=== PATIENT | male | born 1955 | race Caucasian/White ===

== ENCOUNTER 2019-03-02 07:44 | Emergency (ER) | payer OTHER ==
--- OUTSIDE RECORDS SUMMARY | 2019-03-02 07:47 | XMS REPORT | Clinical Summary ---
:1955 Author Organization [facility] Address [address] [place] [address] Care Team Providers Name Role Phone Jeremias Wooten Primary Care Provider Allergies No Known Allergies Medications Medication Sig Dispensed Refills Start Date End Date Status insulin detemir Inject subcutaneously 0 Active (LEVEMIR) 100 nightly. unit/mL (3 mL) InPn injection Missing or 0 Active Non-Formulary Medication metoprolol Take 50 mg by mouth 0 Active (TOPROL-XL) 50 MG daily. 24 hr tablet lansoprazole Take 30 mg by mouth 0 Active (PREVACID) 30 MG daily. capsule glipiZIDE Take 5 mg by mouth 2 0 Active (GLUCOTROL) 5 MG (two) times daily tablet before meals. atorvastatin Take 10 mg by mouth 0 Active (LIPITOR) 10 MG daily. tablet Missing or 0 Active Non-Formulary Medication Active Problems No known active problems Social History Tobacco Use Types Packs/Day Years Used Date Never Smoker Alcohol Use Drinks/Week oz/Week Comments Yes 3 Cans of beer 1.8 PER [facility]EE[facility] Sex Assigned at Date Recorded Not on file Job Start Date Occupation Industry Not on file Not on file Not on file Travel History Travel Start Travel End No recent travel history available. Last Filed Vital Signs Not on file Plan of Treatment Not on file Results Not on fileafter 03/01/2018 Insurance Payer Benefit Plan / Group Subscriber ID Type Phone Address [employer] - [place] HMO/POS/OPEN ACCESS xxxxxxxxxxx HMO/POS
--- OUTSIDE RECORDS SUMMARY | 2019-03-02 07:51 | XMS REPORT ---
:1955 Author Organization [facility] Address [address] [place] [address] Care Team Providers Name Role Phone UNKNOWN, REFFERING Primary Care Provider Unavailable ASAD RUSSELL M.D. Unavailable Unavailable DOUG SAMPSON M.D. Unavailable Unavailable Problems This patient has no known problems. Allergies, Adverse Reactions, Alerts This patient has no known allergies or adverse reactions. Medications This patient has no known medications. Encounters Start End Encounter Admission Attending Care Care Encounter Date/Time Date/Time Type Type Clinicians Facility Department ID 2018-01-23 2018-01-23 [id number] 10:33:00 10:33:00 Trevor CAMACHO 2017-10-06 2017-10-06 [facility] [id number] 20:10:00 20:10:00 DOUG Results Test Description Test Time Test Comments Text Results Atomic Results Result Comments Culture, Blood Routine 2018-02-13 19:31:00 Specimen: BloodCollected: 2017 15:45 Status: Final Last Updated: 02/13/2018 19:31 Culture Result (Final) (Final) No Growth After 5 Days Culture, Blood Routine 2018-02-13 19:31:00 Specimen: BloodCollected: 2017 15:30 Status: Final Last Updated: 02/13/2018 19:31 Culture Result (Final) (Final) No Growth After 5 Days Culture, Cath Tip 2018-02-13 13:30:00 Specimen: Cent.line cath tipCollected : 02/08/2018 12:30 Status: Final Last Updated: 02/13/2018 13:30 Culture Result (Final) (Final) 02/09/18 No growth 24 hours 02/10/18 No growth 48 hours 02/11/18 No growth 3 days 02/12/18 No growth 4 days 02/13/18 No growth 5 days Culture, Urine 2018-02-11 08:05:00 Specimen: UrineCollected: 02/08/2018 20:20 Status: Final Last Updated: 02/11/2018 08:05 Culture Result (Final) (Final) 02/10/18 No growth 24 hours 02/11/18 No growth 48 hours XR ABDOMEN KUB 1V 2018-02-10 08:25:00 XR ABDOMEN KUB 1VLOCATION: [id number] : SBO vs IleusCOMPARISON: KUB 02/09/2018 and 02/08/2018; chest radiograph 02/09/2018FINDINGS: 2 AP portable abdominal radiographs were submitted for interpretation. Mild diffuse small bowel distention has not significantly changed whencompared to KUB dated 02/09/2018.There is no evidence for pneumoperitoneum.Surgical clips are seen over the upper abdomen.There are no acute osseous abnormalities.Median sternotomy changes are present.Left basilar opacity may be due to atelectasis or pneumonia in theappropriate clinical setting.IMPRESSION: Unchanged mild diffuse small bowel distention (when compared to KUBdated 02/09/2018). POC Glucose, Blood 2018-02-10 07:50:00 Test Item Value Reference Range Comments POC Glucose (test code=POCGLUC) 89 mg/dL 70-115 If you consider your patient critically ill, the [facility] Accu-Chek InformII metershould not be used for Glucose determinations.Draw a venous Glucose and send to the Main Lab for Analysis. CBC with [id number] 06:02:00 Test Item Value Reference Range Comments WBC (test code=WBC) 11.0 K/cumm 4.4-10.5 RBC (test code=RBC) 4.27 M/cumm 4.10-5.70 Hemoglobin (test code=HGB) 12.5 gm/dL 13.4-17.4 Hematocrit (test code=HCT) 38.7 % 38.7-52.0 MCV (test code=MCV) 90.8 fL 80-100 MCH (test code=MCH) 29.4 pg 27.0-32.5 MCHC (test code=MCHC) 32.4 g/dL 32.0-37.5 RDW (test code=RDW) 13.4 % 11.5-14.5 Platelet Count (test code=PLTCT) 726 K/cumm 140-440 MPV (test code=MPV) 8.8 fL Diff Method (test code=DIFFM) Auto Neutrophil (test code=NEUT) 63.1 % 36-70 Lymphocyte (test code=LYMPH) 27.3 % 12-44 Monocyte (test code=MONO) 7.6 % 0-11 Eosinophil (test code=EOS) 0.8 % 0-7 Basophil (test code=BASO) 1.1 % 0-2 Neutro Abs (test code=ANEUT) 6.9 K/cumm 1.6-7.4 Lymph Abs (test code=ALYMPH) 3.0 K/cumm 0.5-4.6 [place] Abs (test code=AMONO) 0.8 K/cumm 0.0-1.2 Eos Abs (test code=AEOS) 0.09 K/cumm 0.00-0.74 Baso Abs (test code=ABASO) 0.1 K/cumm 0.00-0.21 Renal [id number] 06:01:00 Test Item Value Reference Range Comments Sodium (test code=NA) 136 mmol/L 135-145 Potassium (test code=K) 3.7 mmol/L 3.5-5.1 Chloride (test code=CL) 92 mmol/L 98-105 Carbon Dioxide (test 32 mmol/L 22-29 code=CO2) Glucose (test code=GLU) 85 mg/dL 70-115 Blood Urea Nitrogen 15 mg/dL 8-23 (test code=BUN) Creatinine (test 0.8 mg/dL 0.7-1.2 code=CREAT) Calcium (test code=CA) 8.6 mg/dL 8.3-10.5 Albumin (test code=ALB) 3.2 g/dL 3.5-5.2 Phosphorus (test 4.0 mg/dL 2.70-4.50 code=PO4) BUN/Creatinine Ratio 18.8 (test code=BCRATIO) Anion Gap (test 12 mmol/L 7-16 code=AGAP) Estimated GFR (test >60 mL/min/1.73m2 eGFR (estimated Glomerular code=GFR) Filtration Rate) is an estimated value,calculated from the patient's serum creatinine using the MDRD equation.It is NOT the patient's actual GFR. The eGFR provides a more clinicallyuseful measure of kidney disease than serum creatinine alone.This calculation takes sex and race into account, if the informationis provided. If the race is not provided, and the patient isAfrican-Cam[place], multiply by 1.212. If sex is not provided, and thepatient is female, multiply by 0.742. Results for patients <18 years ofage have not been validated by the MDRD study and should be interpretedwith caution.eGFR Result Interpretation:eGFR > or=60 is in the Normal RangeeGFR < 60 may mean kidney diseaseeGFR < 15 may mean kidney failureRanges recommended by the National Kidney Foundation,http://nkdep.nih .gov Magnesium, [id number] 05:50:00 Test Item Value Reference Range Comments Magnesium (test code=MG) 2.1 mg/dL 1.7-2.5 POC Glucose, [id number] 21:03:00 Test Item Value Reference Range Comments POC Glucose (test 156 mg/dL 70-115 If you consider your patient code=POCGLUC) critically ill, the [facility] Accu-Chek InformII metershould not be used for Glucose determinations.Draw a venous Glucose and send to the Main Lab for Analysis. POC Glucose, [id number] 16:04:00 Test Item Value Reference Range Comments POC Glucose (test 124 mg/dL 70-115 If you consider your patient code=POCGLUC) critically ill, the [facility] Accu-Chek InformII metershould not be used for Glucose determinations.Draw a venous Glucose and send to the Main Lab for Analysis. POC Glucose, [id number] 11:47:00 Test Item Value Reference Range Comments POC Glucose (test 157 mg/dL 70-115 If you consider your patient code=POCGLUC) critically ill, the [facility] Accu-Chek InformII metershould not be used for Glucose determinations.Draw a venous Glucose and send to the Main Lab for Analysis. XR ABDOMEN KUB [id number] 10:34:34EXAMINATION: XR ABDOMEN KUB 1V.LOCATION: R16.HISTORY: SBO vs Ileus.COMPARISON: Abdominal x-ray 02/08/2018 and 2017.FINDINGS/IMPRESSION:Single frontal view of the abdomen demonstrates distended loopof smallbowel measuring up to 3.5 cm with air noted in the colon, findingssuggestive of early/partial SBO versus ileus. Overall, appears improvedcompared to previous radiographs, with decreased oral contrast notedwithin the colon.Postoperative clips noted over upper abdomen. Degenerative changes oflumbar spine.XR CHEST 1 [id number] 10:16: 15EXAMINATION: XR CHEST 1 VIEW.LOCATION: R16.HISTORY: Pneumonia.COMPARISON: Chest x-ray 02/04/2018.FINDINGS:Examination is limited due to portable technique and patient bodyhabitus.Cardiac silhouette/Mediastinal contour: Persistent enlargement ofcardiac silhouette. Atherosclerotic calcification of aortic arch. Mediansternotomy.Lungs: Retrocardiac atelectasis versus consolidation, minimallyimproved. No large pleural effusion.Osseous Structures: Degenerative changes of thoracic spine.Additional Findings: Interval removal of enteric tube and right-sidedcentral line.IMPRESSION: Minimally improved retrocardiac atelectasis versus consolidation.POC Glucose, [id number] 07:36:00 Test Item Value Reference Range Comments POC Glucose (test 139 mg/dL 70-115 If you consider your patient code=POCGLUC) critically ill, the [facility] Accu-Chek InformII metershould not be used for Glucose determinations.Draw a venous Glucose and send to the Main Lab for Analysis. [id number] 05:31:00 Test Item Value Reference Range Comments Triglycerides (test code=TRIG) 140 mg/dL 9-200 Comprehensive Metabolic [id number] 05:31:00 Test Item Value Reference Range Comments Sodium (test code=NA) 132 mmol/L 135-145 Potassium (test code=K) 3.8 mmol/L 3.5-5.1 Chloride (test code=CL) 87 mmol/L 98-105 Carbon Dioxide (test 33 mmol/L 22-29 code=CO2) Glucose (test code=GLU) 148 mg/dL 70-115 Blood Urea Nitrogen 23 mg/dL 8-23 (test code=BUN) Creatinine (test 1.0 mg/dL 0.7-1.2 code=CREAT) Calcium (test code=CA) 8.5 mg/dL 8.3-10.5 Prot Total (test 5.7 g/dL 6.4-8.3 code=TP) Albumin (test code=ALB) 2.9 g/dL 3.5-5.2 A/G Ratio (test 1.0 Ratio code=AGRATIO) Globulin (test 2.8 2.9-3.1 code=GLOB) Bili Total (test 0.5 mg/dL 0.1-0.9 code=TBIL) Alk Phos (test 119 U/L 40-129 code=APHOS) AST (test code=AST) 36 U/L 1-40 ALT (test code=ALT) 51 U/L 1-41 BUN/Creatinine Ratio 23.0 (test code=BCRATIO) Anion Gap (test 12 mmol/L 7-16 code=AGAP) Estimated GFR (test >60 mL/min/1.73m2 eGFR (estimated Glomerular code=GFR) Filtration Rate) is an estimated value,calculated from the patient's serum creatinine using the MDRD equation.It is NOT the patient's actual GFR. The eGFR provides a more clinicallyuseful measure of kidney disease than serum creatinine alone.This calculation takes sex and race into account, if the informationis provided. If the race is not provided, and the patient isAfrican-Cam[place]onian, multiply by 1.212. If sex is not provided, and thepatient is female, multiply by 0.742. Results for patients <18 years ofage have not been validated by the MDRD study and should be interpretedwith caution.eGFR Result Interpretation:eGFR > or=60 is in the Normal RangeeGFR < 60 may mean kidney diseaseeGFR < 15 may mean kidney failureRanges recommended by the National Kidney Foundation,http://nkdep.nih .gov CBC with [id number] 05:09:00 Test Item Value Reference Range Comments WBC (test code=WBC) 12.2 K/cumm 4.4-10.5 RBC (test code=RBC) 4.46 M/cumm 4.10-5.70 Hemoglobin (test code=HGB) 12.8 gm/dL 13.4-17.4 Hematocrit (test code=HCT) 39.6 % 38.7-52.0 MCV (test code=MCV) 88.9 fL 80-100 MCH (test code=MCH) 28.7 pg 27.0-32.5 MCHC (test code=MCHC) 32.3 g/dL 32.0-37.5 RDW (test code=RDW) 13.2 % 11.5-14.5 Platelet Count (test code=PLTCT) 778 K/cumm 140-440 MPV (test code=MPV) 9.3 fL Diff Method (test code=DIFFM) Auto Neutrophil (test code=NEUT) 66.9 % 36-70 Lymphocyte (test code=LYMPH) 26.0 % 12-44 Monocyte (test code=MONO) 5.7 % 0-11 Eosinophil (test code=EOS) 0.8 % 0-7 Basophil (test code=BASO) 0.5 % 0-2 Neutro Abs (test code=ANEUT) 8.2 K/cumm 1.6-7.4 Lymph Abs (test code=ALYMPH) 3.2 K/cumm 0.5-4.6 [place] Abs (test code=AMONO) 0.7 K/cumm 0.0-1.2 Eos Abs (test code=AEOS) 0.10 K/cumm 0.00-0.74 Baso Abs (test code=ABASO) 0.1 K/cumm 0.00-0.21 POC Glucose, [id number] 20:48:00 Test Item Value Reference Range Comments POC Glucose (test 134 mg/dL 70-115 If you consider your patient code=POCGLUC) critically ill, the [facility] Accu-Chek InformII metershould not be used for Glucose determinations.Draw a venous Glucose and send to the Main Lab for Analysis. POC Glucose, [id number] 16:00:00 Test Item Value Reference Range Comments POC Glucose (test 211 mg/dL 70-115 If you consider your patient code=POCGLUC) critically ill, the [facility] Accu-Chek InformII metershould not be used for Glucose determinations.Draw a venous Glucose and send to the Main Lab for Analysis. POC Glucose, [id number] 11:47:00 Test Item Value Reference Range Comments POC Glucose (test 219 mg/dL 70-115 If you consider your patient code=POCGLUC) critically ill, the [facility] Accu-Chek InformII metershould not be used for Glucose determinations.Draw a venous Glucose and send to the Main Lab for Analysis. XR ABDOMEN KUB [id number] 11:17:51ABDOMEN:LOCATION: R 16HISTORY: SBO vs Ileus.COMPARISON: Feb 07, 2018. FINDINGS: Residual contrast material is present within the colon. There is gaseousdistention of the bowel particularly the stomach. The findings arelikely secondary to partial small bowel obstruction or ileus.IMPRESSION:1. Distention of the bowel particularly the stomach consistent withpartial small bowel obstruction or ileus. There is contrast material inthe colon.POC Glucose, [id number] 08:24 :00 Test Item Value Reference Range Comments POC Glucose (test 239 mg/dL 70-115 If you consider your patient code=POCGLUC) critically ill, the [facility] Accu-Chek InformII metershould not be used for Glucose determinations.Draw a venous Glucose and send to the Main Lab for Analysis. Renal [id number] 05:09:00 Test Item Value Reference Range Comments Sodium (test code=NA) 132 mmol/L 135-145 Potassium (test code=K) 4.2 mmol/L 3.5-5.1 Chloride (test code=CL) 88 mmol/L 98-105 Carbon Dioxide (test 32 mmol/L 22-29 code=CO2) Glucose (test code=GLU) 256 mg/dL 70-115 Blood Urea Nitrogen 22 mg/dL 8-23 (test code=BUN) Creatinine (test 0.9 mg/dL 0.7-1.2 code=CREAT) Calcium (test code=CA) 8.9 mg/dL 8.3-10.5 Albumin (test code=ALB) 3.1 g/dL 3.5-5.2 Phosphorus (test 4.0 mg/dL 2.70-4.50 code=PO4) BUN/Creatinine Ratio 24.4 (test code=BCRATIO) Anion Gap (test 12 mmol/L 7-16 code=AGAP) Estimated GFR (test >60 mL/min/1.73m2 eGFR (estimated Glomerular code=GFR) Filtration Rate) is an estimated value,calculated from the patient's serum creatinine using the MDRD equation.It is NOT the patient's actual GFR. The eGFR provides a more clinicallyuseful measure of kidney disease than serum creatinine alone.This calculation takes sex and race into account, if the informationis provided. If the race is not provided, and the patient isAfrican-[place], multiply by 1.212. If sex is not provided, and thepatient is female, multiply by 0.742. Results for patients <18 years ofage have not been validated by the MDRD study and should be interpretedwith caution.eGFR Result Interpretation:eGFR > or=60 is in the Normal RangeeGFR < 60 may mean kidney diseaseeGFR < 15 may mean kidney failureRanges recommended by the National Kidney Foundation,http://nkdep.nih .gov Magnesium, [id number] 05:04:00 Test Item Value Reference Range Comments Magnesium (test code=MG) 1.8 mg/dL 1.7-2.5 CBC with [id number] 04:53:00 Test Item Value Reference Range Comments WBC (test code=WBC) 20.0 K/cumm 4.4-10.5 RBC (test code=RBC) 4.96 M/cumm 4.10-5.70 Hemoglobin (test code=HGB) 14.5 gm/dL 13.4-17.4 Hematocrit (test code=HCT) 44.3 % 38.7-52.0 MCV (test code=MCV) 89.3 fL 80-100 MCH (test code=MCH) 29.2 pg 27.0-32.5 MCHC (test code=MCHC) 32.7 g/dL 32.0-37.5 RDW (test code=RDW) 13.0 % 11.5-14.5 Platelet Count (test code=PLTCT) 772 K/cumm 140-440 MPV (test code=MPV) 9.2 fL Diff Method (test code=DIFFM) Auto Neutrophil (test code=NEUT) 87.5 % 36-70 Lymphocyte (test code=LYMPH) 7.8 % 12-44 Monocyte (test code=MONO) 4.2 % 0-11 Eosinophil (test code=EOS) 0.1 % 0-7 Basophil (test code=BASO) 0.4 % 0-2 Neutro Abs (test code=ANEUT) 17.5 K/cumm 1.6-7.4 Lymph Abs (test code=ALYMPH) 1.6 K/cumm 0.5-4.6 [place] Abs (test code=AMONO) 0.8 K/cumm 0.0-1.2 Eos Abs (test code=AEOS) 0.01 K/cumm 0.00-0.74 Baso Abs (test code=ABASO) 0.1 K/cumm 0.00-0.21 POC Glucose, [id number] 20:48:00 Test Item Value Reference Range Comments POC Glucose (test 234 mg/dL 70-115 If you consider your patient code=POCGLUC) critically ill, the [facility] Accu-Chek InformII metershould not be used for Glucose determinations.Draw a venous Glucose and send to the Main Lab for Analysis. POC Glucose, [id number] 15:56:00 Test Item Value Reference Range Comments POC Glucose (test 196 mg/dL 70-115 If you consider your patient code=POCGLUC) critically ill, the [facility] Accu-Chek InformII metershould not be used for Glucose determinations.Draw a venous Glucose and send to the Main Lab for Analysis. POC Glucose, [id number] 11:18:00 Test Item Value Reference Range Comments POC Glucose (test 216 mg/dL 70-115 If you consider your patient code=POCGLUC) critically ill, the [facility] Accu-Chek InformII metershould not be used for Glucose determinations.Draw a venous Glucose and send to the Main Lab for Analysis. XR ABDOMEN KUB [id number] 09:55:53ABDOMEN:LOCATION: R 16HISTORY: SBO vs Ileus.COMPARISON: Feb 06, 2018 FINDINGS: There is residual contrast material within the colon and distal smallbowel. Mildly dilated small bowel loops are again identified in the midabdomen. There is no free air. Feeding tube is no longer identified.. IMPRESSION:Residual contrast material within the small bowel and colon from priorcontrast examination. Persistent mildly dilated loops of small bowel inthe midabdomen.Magnesium, [id number] 08:29:00 Test Item Value Reference Range Comments Magnesium (test code=MG) 2.1 mg/dL 1.7-2.5 POC Glucose, [id number] 07:42:00 Test Item Value Reference Range Comments POC Glucose (test 259 mg/dL 70-115 If you consider your patient code=POCGLUC) critically ill, the [facility] Accu-Chek InformII metershould not be used for Glucose determinations.Draw a venous Glucose and send to the Main Lab for Analysis. CBC with [id number] 06:04:00 Test Item Value Reference Range Comments WBC (test code=WBC) 17.7 K/cumm 4.4-10.5 RBC (test code=RBC) 4.28 M/cumm 4.10-5.70 Hemoglobin (test code=HGB) 12.7 gm/dL 13.4-17.4 Hematocrit (test code=HCT) 38.6 % 38.7-52.0 MCV (test code=MCV) 90.2 fL 80-100 MCH (test code=MCH) 29.6 pg 27.0-32.5 MCHC (test code=MCHC) 32.9 g/dL 32.0-37.5 RDW (test code=RDW) 12.9 % 11.5-14.5 Platelet Count (test code=PLTCT) 719 K/cumm 140-440 MPV (test code=MPV) 9.2 fL Diff Method (test code=DIFFM) Auto Neutrophil (test code=NEUT) 70.5 % 36-70 Lymphocyte (test code=LYMPH) 21.0 % 12-44 Monocyte (test code=MONO) 6.9 % 0-11 Eosinophil (test code=EOS) 1.1 % 0-7 Basophil (test code=BASO) 0.7 % 0-2 Neutro Abs (test code=ANEUT) 12.5 K/cumm 1.6-7.4 Lymph Abs (test code=ALYMPH) 3.7 K/cumm 0.5-4.6 [place] Abs (test code=AMONO) 1.2 K/cumm 0.0-1.2 Eos Abs (test code=AEOS) 0.19 K/cumm 0.00-0.74 Baso Abs (test code=ABASO) 0.1 K/cumm 0.00-0.21 Renal [id number] 05:53:00 Test Item Value Reference Range Comments Sodium (test code=NA) 134 mmol/L 135-145 Potassium (test code=K) 3.4 mmol/L 3.5-5.1 Chloride (test code=CL) 88 mmol/L 98-105 Carbon Dioxide (test 33 mmol/L 22-29 code=CO2) Glucose (test code=GLU) 228 mg/dL 70-115 Blood Urea Nitrogen 11 mg/dL 8-23 (test code=BUN) Creatinine (test 0.6 mg/dL 0.7-1.2 code=CREAT) Calcium (test code=CA) 9.1 mg/dL 8.3-10.5 Albumin (test code=ALB) 3.1 g/dL 3.5-5.2 Phosphorus (test 3.3 mg/dL 2.70-4.50 code=PO4) BUN/Creatinine Ratio 18.3 (test code=BCRATIO) Anion Gap (test 13 mmol/L 7-16 code=AGAP) Estimated GFR (test >60 mL/min/1.73m2 eGFR (estimated Glomerular code=GFR) Filtration Rate) is an estimated value,calculated from the patient's serum creatinine using the MDRD equation.It is NOT the patient's actual GFR. The eGFR provides a more clinicallyuseful measure of kidney disease than serum creatinine alone.This calculation takes sex and race into account, if the informationis provided. If the race is not provided, and the patient isAfrican-[place], multiply by 1.212. If sex is not provided, and thepatient is female, multiply by 0.742. Results for patients <18 years ofage have not been validated by the MDRD study and should be interpretedwith caution.eGFR Result Interpretation:eGFR > or=60 is in the Normal RangeeGFR < 60 may mean kidney diseaseeGFR < 15 may mean kidney failureRanges recommended by the National Kidney Foundation,http://nkdep.nih .gov POC Glucose, [id number] 20:48:00 Test Item Value Reference Range Comments POC Glucose (test 278 mg/dL 70-115 If you consider your patient code=POCGLUC) critically ill, the [facility] Accu-Chek InformII metershould not be used for Glucose determinations.Draw a venous Glucose and send to the Main Lab for Analysis. XR SMALL [id number] 20:11:54CLINICAL INFORMATION: Abdominal pain.Dictation location: R 16Comparison: No priors.Technique: Singlesupine view of the abdomen was submitted.FINDINGS: Orally administered barium has reached the colon at the 2 hour45 minute point. There are mildly dilated small bowel loops seen in themidabdomen. NG tube tip extends into the stomach.IMPRESSION:1. Normal small bowel transit time.2. Mildly dilated mid abdominal small bowel.POC Glucose, [id number] 16:34:00 Test Item Value Reference Range Comments POC Glucose (test 249 mg/dL 70-115 If you consider your patient code=POCGLUC) critically ill, the [facility] Accu-Chek InformII metershould not be used for Glucose determinations.Draw a venous Glucose and send to the Main Lab for Analysis. XR ABDOMEN KUB [id number] 08:39:36XR ABDOMEN KUB 1VLOCATION: [id number]: SBO vs IleusCOMPARISON: KUB 02/05/2018, chest radiograph 02/04/2018FINDINGS: 2 AP portable abdominal radiographs were submitted for interpretation.Line/tubes: Gastric tube terminates over the lateral gastric fundus.Mild diffuse small bowel distention has not significantly changed.There is no evidence for pneumoperitoneum.There are no acute osseous abnormalities.Surgical clips are seen over the upper abdomen.Left basilar pulmonary opacity is present.Median sternotomy changes are noted.The cardiac silhouette is prominent.IMPRESSION: No significant change in milddiffuse small bowel distention.POC Glucose, [id number] 08:31:00 Test Item Value Reference Range Comments POC Glucose (test 188 mg/dL 70-115 If you consider your patient code=POCGLUC) critically ill, the [facility] Accu-Chek InformII metershould not be used for Glucose determinations.Draw a venous Glucose and send to the Main Lab for Analysis. CBC with [id number] 06:31:00 Test Item Value Reference Range Comments WBC (test code=WBC) 16.4 K/cumm 4.4-10.5 RBC (test code=RBC) 4.28 M/cumm 4.10-5.70 Hemoglobin (test code=HGB) 11.7 gm/dL 13.4-17.4 Hematocrit (test code=HCT) 39.0 % 38.7-52.0 MCV (test code=MCV) 91.1 fL 80-100 MCH (test code=MCH) 27.4 pg 27.0-32.5 MCHC (test code=MCHC) 30.1 g/dL 32.0-37.5 RDW (test code=RDW) 12.8 % 11.5-14.5 Platelet Count (test code=PLTCT) 610 K/cumm 140-440 MPV (test code=MPV) 9.5 fL Diff Method (test code=DIFFM) Auto Neutrophil (test code=NEUT) 74.9 % 36-70 Lymphocyte (test code=LYMPH) 15.5 % 12-44 Monocyte (test code=MONO) 8.4 % 0-11 Eosinophil (test code=EOS) 0.6 % 0-7 Basophil (test code=BASO) 0.5 % 0-2 Neutro Abs (test code=ANEUT) 12.3 K/cumm 1.6-7.4 Lymph Abs (test code=ALYMPH) 2.5 K/cumm 0.5-4.6 [place] Abs (test code=AMONO) 1.4 K/cumm 0.0-1.2 Eos Abs (test code=AEOS) 0.10 K/cumm 0.00-0.74 Baso Abs (test code=ABASO) 0.1 K/cumm 0.00-0.21 Comprehensive Metabolic [id number] 05:54:00 Test Item Value Reference Range Comments Sodium (test code=NA) 132 mmol/L 135-145 Potassium (test code=K) 3.6 mmol/L 3.5-5.1 Chloride (test code=CL) 84 mmol/L 98-105 Carbon Dioxide (test 37 mmol/L 22-29 code=CO2) Glucose (test code=GLU) 212 mg/dL 70-115 Blood Urea Nitrogen 11 mg/dL 8-23 (test code=BUN) Creatinine (test 0.7 mg/dL 0.7-1.2 code=CREAT) Calcium (test code=CA) 8.4 mg/dL 8.3-10.5 Prot Total (test 6.1 g/dL 6.4-8.3 code=TP) Albumin (test code=ALB) 3.1 g/dL 3.5-5.2 A/G Ratio (test 1.0 Ratio code=AGRATIO) Globulin (test 3.0 2.9-3.1 code=GLOB) Bili Total (test 0.4 mg/dL 0.1-0.9 code=TBIL) Alk Phos (test 121 U/L 40-129 code=APHOS) AST (test code=AST) 30 U/L 1-40 ALT (test code=ALT) 22 U/L 1-41 BUN/Creatinine Ratio 15.7 (test code=BCRATIO) Anion Gap (test 11 mmol/L 7-16 code=AGAP) Estimated GFR (test >60 mL/min/1.73m2 eGFR (estimated Glomerular code=GFR) Filtration Rate) is an estimated value,calculated from the patient's serum creatinine using the MDRD equation.It is NOT the patient's actual GFR. The eGFR provides a more clinicallyuseful measure of kidney disease than serum creatinine alone.This calculation takes sex and race into account, if the informationis provided. If the race is not provided, and the patient isAfrican-[place], multiply by 1.212. If sex is not provided, and thepatient is female, multiply by 0.742. Results for patients <18 years ofage have not been validated by the MDRD study and should be interpretedwith caution.eGFR Result Interpretation:eGFR > or=60 is in the Normal RangeeGFR < 60 may mean kidney diseaseeGFR < 15 may mean kidney failureRanges recommended by the National Kidney Foundation,http://nkdep.nih .gov [id number] 05:54:00 Test Item Value Reference Range Comments Triglycerides (test code=TRIG) 154 mg/dL 9-200 Magnesium, [id number] 05:54:00 Test Item Value Reference Range Comments Magnesium (test code=MG) 2.2 mg/dL 1.7-2.5 Renal [id number] 05:53:00 Test Item Value Reference Range Comments Sodium (test code=NA) 133 mmol/L 135-145 Potassium (test code=K) 3.6 mmol/L 3.5-5.1 Chloride (test code=CL) 84 mmol/L 98-105 Carbon Dioxide (test 36 mmol/L 22-29 code=CO2) Glucose (test code=GLU) 217 mg/dL 70-115 Blood Urea Nitrogen 11 mg/dL 8-23 (test code=BUN) Creatinine (test 0.7 mg/dL 0.7-1.2 code=CREAT) Calcium (test code=CA) 8.6 mg/dL 8.3-10.5 Albumin (test code=ALB) 3.1 g/dL 3.5-5.2 Phosphorus (test 3.0 mg/dL 2.70-4.50 code=PO4) BUN/Creatinine Ratio 15.7 (test code=BCRATIO) Anion Gap (test 13 mmol/L 7-16 code=AGAP) Estimated GFR (test >60 mL/min/1.73m2 eGFR (estimated Glomerular code=GFR) Filtration Rate) is an estimated value,calculated from the patient's serum creatinine using the MDRD equation.It is NOT the patient's actual GFR. The eGFR provides a more clinicallyuseful measure of kidney disease than serum creatinine alone.This calculation takes sex and race into account, if the informationis provided. If the race is not provided, and the patient isAfrican-[place], multiply by 1.212. If sex is not provided, and thepatient is female, multiply by 0.742. Results for patients <18 years ofage have not been validated by the MDRD study and should be interpretedwith caution.eGFR Result Interpretation:eGFR > or=60 is in the Normal RangeeGFR < 60 may mean kidney diseaseeGFR < 15 may mean kidney failureRanges recommended by the National Kidney Foundation,http://nkdep.nih .gov POC Glucose, [id number] 04:46:00 Test Item Value Reference Range Comments POC Glucose (test 213 mg/dL 70-115 If you consider your patient code=POCGLUC) critically ill, the [facility] Accu-Chek InformII metershould not be used for Glucose determinations.Draw a venous Glucose and send to the Main Lab for Analysis. POC Glucose, [id number] 21:24:00 Test Item Value Reference Range Comments POC Glucose (test 217 mg/dL 70-115 If you consider your patient code=POCGLUC) critically ill, the [facility] Accu-Chek InformII metershould not be used for Glucose determinations.Draw a venous Glucose and send to the Main Lab for Analysis. POC Glucose, [id number] 16:57:00 Test Item Value Reference Range Comments POC Glucose (test 134 mg/dL 70-115 If you consider your patient code=POCGLUC) critically ill, the [facility] Accu-Chek InformII metershould not be used for Glucose determinations.Draw a venous Glucose and send to the Main Lab for Analysis. POC Glucose, [id number] 12:00:00 Test Item Value Reference Range Comments POC Glucose (test 90 mg/dL 70-115 If you consider your patient code=POCGLUC) critically ill, the [facility] Accu-Chek InformII metershould not be used for Glucose determinations.Draw a venous Glucose and send to the Main Lab for Analysis. XR ABDOMEN KUB [id number] 08:31:50CLINICAL INFORMATION: SBO vs IleusCOMPARISONS: 02/04/2018TECHNIQUE: 2 AP views of the abdomenFINDINGS:There is a left basilar opacity. A partially imaged central venouscatheter terminates at the cavoatrial junction. Median sternotomy wiresare noted.A nasogastric tube terminates at the gastric fundus.Gas distended small bowel loops measure up to 4.3 cm and appears grosslyunchanged compared to the prior exam. Surgical clips are noted in theupper abdomen. IMPRESSION: Persistent gas distended bowel loops, grossly unchanged. Findings canrepresent small bowel obstruction or ileus in the appropriate clinicalsetting.Location: T31Vrusm Metabolic [id number] 06:38:00 Test Item Value Reference Range Comments Sodium (test code=NA) 133 mmol/L 135-145 Potassium (test code=K) 2.9 mmol/L 3.5-5.1 READ BACK LAB VALUESVERIFIED BY REPEAT TESTINGMargieSuazo @638am 02/05/2018 kms Chloride (test code=CL) 79 mmol/L 98-105 Carbon Dioxide (test 39 mmol/L 22-29 code=CO2) Glucose (test code=GLU) 105 mg/dL 70-115 Blood Urea Nitrogen 15 mg/dL 8-23 (test code=BUN) Creatinine (test 0.8 mg/dL 0.7-1.2 code=CREAT) Calcium (test code=CA) 8.3 mg/dL 8.3-10.5 BUN/Creatinine Ratio 18.8 (test code=BCRATIO) Anion Gap (test 15 mmol/L 7-16 code=AGAP) Estimated GFR (test >60 mL/min/1.73m2 eGFR (estimated Glomerular code=GFR) Filtration Rate) is an estimated value,calculated from the patient's serum creatinine using the MDRD equation.It is NOT the patient's actual GFR. The eGFR provides a more clinicallyuseful measure of kidney disease than serum creatinine alone.This calculation takes sex and race into account, if the informationis provided. If the race is not provided, and the patient isAfrican-[place], multiply by 1.212. If sex is not provided, and thepatient is female, multiply by 0.742. Results for patients <18 years ofage have not been validated by the MDRD study and should be interpretedwith caution.eGFR Result Interpretation:eGFR > or=60 is in the Normal RangeeGFR < 60 may mean kidney diseaseeGFR < 15 may mean kidney failureRanges recommended by the National Kidney Foundation,http://nkdep.nih .gov POC Glucose, [id number] 04:42:00 Test Item Value Reference Range Comments POC Glucose (test 116 mg/dL 70-115 If you consider your patient code=POCGLUC) critically ill, the [facility] Accu-Chek InformII metershould not be used for Glucose determinations.Draw a venous Glucose and send to the Main Lab for Analysis. POC Glucose, [id number] 21:15:00 Test Item Value Reference Range Comments POC Glucose (test 140 mg/dL 70-115 If you consider your patient code=POCGLUC) critically ill, the [facility] Accu-Chek InformII metershould not be used for Glucose determinations.Draw a venous Glucose and send to the Main Lab for Analysis. POC Glucose, [id number] 16:16:00 Test Item Value Reference Range Comments POC Glucose (test 138 mg/dL 70-115 If you consider your patient code=POCGLUC) critically ill, the [facility] Accu-Chek InformII metershould not be used for Glucose determinations.Draw a venous Glucose and send to the Main Lab for Analysis. XR ABDOMEN KUB [id number] 15:06:43XR ABDOMEN KUB 1VLOCATION: [id number]: postop ileusCOMPARISON: Chest radiograph 02/04/2018, KUB 02/03/2018FINDINGS: 2 AP portable abdominal radiographs were submitted for interpretation.Line/tubes: Central line terminates over the superior cavoatrialjunction. Gastric tube terminates over the lateral gastric fundus.Diffuse air-filled bowel distention has slightly decreased.There is no evidence for pneumoperitoneum.There are no acute osseous abnormalities.A small calcification over the lower left pelvis may be a phlebolith.Median sternotomy changes are noted.Surgical clips are seen over the upper abdomen.Left basilar pulmonary opacity is again noted.The cardiac silhouette is enlarged, but stable.IMPRESSION: Slightly decreased diffuse bowel distention.XR ABDOMEN KUB [id number] 14:19:14ABDOMEN, 1 VIEWCLINICAL INFORMATION: SBO vs Ileus COMPARISONS: February 03, 2018 at 0941 hoursFINDINGS:The tip of the nasogastric tube terminates in the stomach. The smallbowel loops in the midabdomen are mildly gas distended up to 3.5 cm. Scattered gas and stool are noted in the colon and rectum.IMPRESSION: Mild gaseous distention of the small bowel loops in keeping with ahistory of partial small bowel obstruction.Location: R16POC Glucose, [id number] 10:24:00 Test Item Value Reference Range Comments POC Glucose (test 158 mg/dL 70-115 If you consider your patient code=POCGLUC) critically ill, the [facility] Accu-Chek InformII metershould not be used for Glucose determinations.Draw a venous Glucose and send to the Main Lab for Analysis. XR CHEST 1 [id number] 08:02:25EXAM: Portable AP chest x-rayLOCATION: R16 INDICATION: chest tubes.COMPARISON: 02/03/2018FINDINGS:Stable lines and tubes. The cardiac silhouette is stable and enlarged. Poststernotomy changesare again identified.Redemonstrated is a left lower lobe airspace opacity. There is bluntingof the left costophrenic angle. The right lung is clear. No discerniblepneumothorax.IMPRESSION:Persistent left lower lobeconsolidation and small left pleuraleffusion.Basic Metabolic [id number] 07:33:00 Test Item Value Reference Range Comments Sodium (test code=NA) 131 mmol/L 135-145 Potassium (test code=K) 3.2 mmol/L 3.5-5.1 Chloride (test code=CL) 73 mmol/L 98-105 Carbon Dioxide (test 34 mmol/L 22-29 code=CO2) Glucose (test code=GLU) 136 mg/dL 70-115 Blood Urea Nitrogen 21 mg/dL 8-23 (test code=BUN) Creatinine (test 0.9 mg/dL 0.7-1.2 code=CREAT) Calcium (test code=CA) 8.4 mg/dL 8.3-10.5 BUN/Creatinine Ratio 23.3 (test code=BCRATIO) Anion Gap (test 24 mmol/L 7-16 code=AGAP) Estimated GFR (test >60 mL/min/1.73m2 eGFR (estimated Glomerular code=GFR) Filtration Rate) is an estimated value,calculated from the patient's serum creatinine using the MDRD equation.It is NOT the patient's actual GFR. The eGFR provides a more clinicallyuseful measure of kidney disease than serum creatinine alone.This calculation takes sex and race into account, if the informationis provided. If the race is not provided, and the patient isAfrican-[place], multiply by 1.212. If sex is not provided, and thepatient is female, multiply by 0.742. Results for patients <18 years ofage have not been validated by the MDRD study and should be interpretedwith caution.eGFR Result Interpretation:eGFR > or=60 is in the Normal RangeeGFR < 60 may mean kidney diseaseeGFR < 15 may mean kidney failureRanges recommended by the National Kidney Foundation,http://nkdep.nih .gov POC Glucose, [id number] 06:09:00 Test Item Value Reference Range Comments POC Glucose (test 147 mg/dL 70-115 If you consider your patient code=POCGLUC) critically ill, the [facility] Accu-Chek InformII metershould not be used for Glucose determinations.Draw a venous Glucose and send to the Main Lab for Analysis. POC Glucose, [id number] 21:48:00 Test Item Value Reference Range Comments POC Glucose (test 134 mg/dL 70-115 If you consider your patient code=POCGLUC) critically ill, the [facility] Accu-Chek InformII metershould not be used for Glucose determinations.Draw a venous Glucose and send to the Main Lab for Analysis. POC Glucose, [id number] 16:27:00 Test Item Value Reference Range Comments POC Glucose (test 147 mg/dL 70-115 If you consider your patient code=POCGLUC) critically ill, the [facility] Accu-Chek InformII metershould not be used for Glucose determinations.Draw a venous Glucose and send to the Main Lab for Analysis. POC Glucose, [id number] 12:56:00 Test Item Value Reference Range Comments POC Glucose (test 150 mg/dL 70-115 If you consider your patient code=POCGLUC) critically ill, the [facility] Accu-Chek InformII metershould not be used for Glucose determinations.Draw a venous Glucose and send to the Main Lab for Analysis. XR ABDOMEN KUB [id number] 09:57:51XR ABDOMEN KUB 1VLOCATION: [id number]: ileusCOMPARISON: KUB 02/02/2018, CT of the abdomen and pelvis02/01/2018FINDINGS: 2 AP portable abdominal radiographs were submitted for interpretation. Surgical clips are seen in the upper abdomen.Diffuse air-filled bowel distention has slightly decreased.There is no evidence for pneumoperitoneum.There are no acute osseous abnormalities.A small calcification over the lower left pelvis is likely a phlebolith.IMPRESSION: Slightly decreased diffuse bowel distention.XR CHEST 1 [id number] 08:23:16EXAM: Portable AP chest x-rayLOCATION: R16 INDICATION: chest tubes.COMPARISON: 02/02/2018FINDINGS:Lines and tubes appear stable.Cardiac silhouette is stable and enlarged. Poststernotomy changes areagainnoted.There is a left lower lobe airspace opacity. The right lung isessentially clear. There is no discernible pneumothorax. IMPRESSION:Left lower lobe atelectasis versus pneumonia, unchanged.POC Glucose, [id number] 07:53:00 Test Item Value Reference Range Comments POC Glucose (test 151 mg/dL 70-115 If you consider your patient code=POCGLUC) critically ill, the [facility] Accu-Chek InformII metershould not be used for Glucose determinations.Draw a venous Glucose and send to the Main Lab for Analysis. Basic Metabolic [id number] 06:36:00 Test Item Value Reference Range Comments Sodium (test code=NA) 133 mmol/L 135-145 Potassium (test code=K) 3.1 mmol/L 3.5-5.1 Chloride (test code=CL) 76 mmol/L 98-105 Carbon Dioxide (test 38 mmol/L 22-29 code=CO2) Glucose (test code=GLU) 153 mg/dL 70-115 Blood Urea Nitrogen 27 mg/dL 8-23 (test code=BUN) Creatinine (test 1.0 mg/dL 0.7-1.2 code=CREAT) Calcium (test code=CA) 8.4 mg/dL 8.3-10.5 BUN/Creatinine Ratio 27.0 (test code=BCRATIO) Anion Gap (test 19 mmol/L 7-16 code=AGAP) Estimated GFR (test >60 mL/min/1.73m2 eGFR (estimated Glomerular code=GFR) Filtration Rate) is an estimated value,calculated from the patient's serum creatinine using the MDRD equation.It is NOT the patient's actual GFR. The eGFR provides a more clinicallyuseful measure of kidney disease than serum creatinine alone.This calculation takes sex and race into account, if the informationis provided. If the race is not provided, and the patient isAfrican-[place], multiply by 1.212. If sex is not provided, and thepatient is female, multiply by 0.742. Results for patients <18 years ofage have not been validated by the MDRD study and should be interpretedwith caution.eGFR Result Interpretation:eGFR > or=60 is in the Normal RangeeGFR < 60 may mean kidney diseaseeGFR < 15 may mean kidney failureRanges recommended by the National Kidney Foundation,http://nkdep.nih .gov POC Glucose, [id number] 21:00:00 Test Item Value Reference Range Comments POC Glucose (test 161 mg/dL 70-115 If you consider your patient code=POCGLUC) critically ill, the [facility] Accu-Chek InformII metershould not be used for Glucose determinations.Draw a venous Glucose and send to the Main Lab for Analysis. POC Glucose, [id number] 12:59:00 Test Item Value Reference Range Comments POC Glucose (test 164 mg/dL 70-115 If you consider your patient code=POCGLUC) critically ill, the [facility] Accu-Chek InformII metershould not be used for Glucose determinations.Draw a venous Glucose and send to the Main Lab for Analysis. XR CHEST 1 [id number] 09:03:40CHEST 1 VIEWCLINICAL INFORMATION: chest tubes.COMPARISON: January 31, 2018FINDINGS:The nasogastric terminates in the stomach. The tip of the right jugularcentral line projects over the distal SVC. Median sternotomy wires arepresent.There is stable elevation of the left hemidiaphragm. Left basilaratelectasis remains. The right lung is clear. The heart size isnormal.IMPRESSION:1. The nasogastric tube terminates in the stomach. Other lines andtubes are stable.2. Left basilar atelectasis.LOCATION : R16XR ABDOMEN KUB [id number] 05:31:40AFTER HOURS SERVICE ON: 02/02/2018 5:31 AMAbdomen, 1 Supine ViewLocation Code [id number]: placement of NGTFindings:New NGT is noted in the stomach. Again noted are dilated air-filledloops of bowel throughout the abdomen similar to the prior of 02/01/2018.Impression: 1. New NGT adequately in place.2. Persistent findings related to ileus or partial small bowelobstruction.Comprehensive Metabolic [id number] 05:15:00 Test Item Value Reference Range Comments Sodium (test code=NA) 131 mmol/L 135-145 Potassium (test code=K) 3.0 mmol/L 3.5-5.1 Chloride (test code=CL) 79 mmol/L 98-105 Carbon Dioxide (test 36 mmol/L 22-29 code=CO2) Glucose (test code=GLU) 157 mg/dL 70-115 Blood Urea Nitrogen 18 mg/dL 8-23 (test code=BUN) Creatinine (test 0.8 mg/dL 0.7-1.2 code=CREAT) Calcium (test code=CA) 8.8 mg/dL 8.3-10.5 Prot Total (test 5.7 g/dL 6.4-8.3 code=TP) Albumin (test code=ALB) 3.1 g/dL 3.5-5.2 A/G Ratio (test 1.2 Ratio code=AGRATIO) Globulin (test 2.6 2.9-3.1 code=GLOB) Bili Total (test 0.9 mg/dL 0.1-0.9 code=TBIL) Alk Phos (test 108 U/L 40-129 code=APHOS) AST (test code=AST) 20 U/L 1-40 ALT (test code=ALT) 24 U/L 1-41 BUN/Creatinine Ratio 22.5 (test code=BCRATIO) Anion Gap (test 16 mmol/L 7-16 code=AGAP) Estimated GFR (test >60 mL/min/1.73m2 eGFR (estimated Glomerular code=GFR) Filtration Rate) is an estimated value,calculated from the patient's serum creatinine using the MDRD equation.It is NOT the patient's actual GFR. The eGFR provides a more clinicallyuseful measure of kidney disease than serum creatinine alone.This calculation takes sex and race into account, if the informationis provided. If the race is not provided, and the patient isAfrican-[place], multiply by 1.212. If sex is not provided, and thepatient is female, multiply by 0.742. Results for patients <18 years ofage have not been validated by the MDRD study and should be interpretedwith caution.eGFR Result Interpretation:eGFR > or=60 is in the Normal RangeeGFR < 60 may mean kidney diseaseeGFR < 15 may mean kidney failureRanges recommended by the National Kidney Foundation,http://nkdep.nih .gov Lactic Acid [id number] 05:14:00 Test Item Value Reference Range Comments Lactic Acid, Bld (test code=LAC) 1.6 mmol/L 0.5-1.9 CBC with [id number] 04:47:00 Test Item Value Reference Range Comments WBC (test code=WBC) 9.5 K/cumm 4.4-10.5 RBC (test code=RBC) 4.34 M/cumm 4.10-5.70 Hemoglobin (test code=HGB) 13.2 gm/dL 13.4-17.4 Hematocrit (test code=HCT) 38.3 % 38.7-52.0 MCV (test code=MCV) 88.3 fL 80-100 MCH (test code=MCH) 30.4 pg 27.0-32.5 MCHC (test code=MCHC) 34.4 g/dL 32.0-37.5 RDW (test code=RDW) 13.1 % 11.5-14.5 Platelet Count (test code=PLTCT) 315 K/cumm 140-440 MPV (test code=MPV) 7.5 fL Diff Method (test code=DIFFM) Auto Neutrophil (test code=NEUT) 71.8 % 36-70 Lymphocyte (test code=LYMPH) 14.8 % 12-44 Monocyte (test code=MONO) 12.7 % 0-11 Eosinophil (test code=EOS) 0.5 % 0-7 Basophil (test code=BASO) 0.3 % 0-2 Neutro Abs (test code=ANEUT) 6.8 K/cumm 1.6-7.4 Lymph Abs (test code=ALYMPH) 1.4 K/cumm 0.5-4.6 [place] Abs (test code=AMONO) 1.2 K/cumm 0.0-1.2 Eos Abs (test code=AEOS) 0.05 K/cumm 0.00-0.74 Baso Abs (test code=ABASO) 0.0 K/cumm 0.00-0.21 POC Glucose, [id number] 21:18:00 Test Item Value Reference Range Comments POC Glucose (test 193 mg/dL 70-115 If you consider your patient code=POCGLUC) critically ill, the [facility] Accu-Chek InformII metershould not be used for Glucose determinations.Draw a venous Glucose and send to the Main Lab for Analysis. 41296& PELVIS W/O [id number] 20:55:05LOCATION: [id number]: 62-year- old male with abdominal pain.COMMENT:Axial CT imaging of this patient's abdomen and pelvis was obtained fromthe diaphragm to the pelvic floor without IV contrast. Coronalandsagittal soft tissue reconstructions were included.One or more of the following dose reduction techniques were used:Automated exposure control, adjustment of the mA and/or kV according thepatient size, and/or utilization of iterative reconstruction technique.DLP: 671.7 mGy-cmCONTRAST: The patient was given oral contrast for this study but thepatient was unable to tolerate the contrast and vomited.FINDINGS:The lower thorax areas of alveolar consolidation in the left lung base.A trace left pleural effusion is also present. Biventricular cardiacenlargement is present.The upper abdomen the stomach is considerably distended with fluid. Thefluid distention extends into the small intestine. The distalsmallintestine is decompressed as is the majority of the patient's colon. Theobstructive point is not clearly seen in this examination.The liver, spleen, pancreas, adrenal glands, and kidneys areunremarkable. Cholecystectomy clips are present.No ascites is seen and no adenopathy is present.In the pelvis the urinary bladder is unremarkable. The prostate glandand seminal vesicles are unremarkable.The vascular anatomy is unremarkable.The musculoskeletal anatomy is unremarkable.IMPRESSION:Small intestinal obstruction is seen in this patient's abdomen. Theobstructive lead point is not clearly seen.The stomach is considerably distended with fluid and the patient mightbenefit but underlying nasogastric intubation.POC Glucose, [id number] 17:03:00 Test Item Value Reference Range Comments POC Glucose (test 223 mg/dL 70-115 If you consider your patient code=POCGLUC) critically ill, the [facility] Accu-Chek InformII metershould not be used for Glucose determinations.Draw a venous Glucose and send to the Main Lab for Analysis. [id number] 16:18:00 Test Item Value Reference Range Comments Lipase (test code=LIP) 44 U/L 13-60 Lactic Acid [id number] 16:18:00 Test Item Value Reference Range Comments Lactic Acid, Bld (test code=LAC) 1.8 mmol/L 0.5-1.9 CBC with [id number] 16:00:00 Test Item Value Reference Range Comments WBC (test code=WBC) 12.0 K/cumm 4.4-10.5 RBC (test code=RBC) 4.52 M/cumm 4.10-5.70 Hemoglobin (test code=HGB) 13.7 gm/dL 13.4-17.4 Hematocrit (test code=HCT) 40.0 % 38.7-52.0 MCV (test code=MCV) 88.3 fL 80-100 MCH (test code=MCH) 30.3 pg 27.0-32.5 MCHC (test code=MCHC) 34.3 g/dL 32.0-37.5 RDW (test code=RDW) 13.2 % 11.5-14.5 Platelet Count (test code=PLTCT) 291 K/cumm 140-440 MPV (test code=MPV) 7.7 fL Diff Method (test code=DIFFM) Auto Neutrophil (test code=NEUT) 78.7 % 36-70 Lymphocyte (test code=LYMPH) 9.9 % 12-44 Monocyte (test code=MONO) 10.8 % 0-11 Eosinophil (test code=EOS) 0.5 % 0-7 Basophil (test code=BASO) 0.1 % 0-2 Neutro Abs (test code=ANEUT) 9.5 K/cumm 1.6-7.4 Lymph Abs (test code=ALYMPH) 1.2 K/cumm 0.5-4.6 [place] Abs (test code=AMONO) 1.3 K/cumm 0.0-1.2 Eos Abs (test code=AEOS) 0.06 K/cumm 0.00-0.74 Baso Abs (test code=ABASO) 0.0 K/cumm 0.00-0.21 POC Glucose, [id number] 12:13:00 Test Item Value Reference Range Comments POC Glucose (test 210 mg/dL 70-115 If you consider your patient code=POCGLUC) critically ill, the [facility] Accu-Chek InformII metershould not be used for Glucose determinations.Draw a venous Glucose and send to the Main Lab for Analysis. XR ABDOMEN 2 [id number] 09:41:01Exam: Abdomen 2 viewsHISTORY: Abdominal painLocation: [id number]:Some dilated loops of small bowel and colon are seen suggestive ofileus. Surgical mor are present in the upper abdomen. Previoussternotomy with left basilar atelectasis and small effusion.IMPRESSION: 1. Likely ileus or enteritis.POC Glucose, [id number] 08:08:00 Test Item Value Reference Range Comments POC Glucose (test 236 mg/dL 70-115 If you consider your patient code=POCGLUC) critically ill, the [facility] Accu-Chek InformII metershould not be used for Glucose determinations.Draw a venous Glucose and send to the Main Lab for Analysis. RBC, Crossmatch 01:48:00 Test Item Value Reference Range Comments Product 1 Code (test code=PRODCODE1) E0336 Unit 1 ID (test code=UNITID1) [id number] Unit 1 ABO (test code=UNITABO1) O Unit 1 Rh (test code=UNITRH1) POS Unit 1 Interp (test code=UNITINTERP1) Compatible Unit 1 Status (test code=UNITSTAT1) RE Product 2 Code (test code=PRODCODE2) E0336 Unit 2 ID (test code=UNITID2) [id number] Unit 2 ABO (test code=UNITABO2) O Unit 2 Rh (test code=UNITRH2) POS Unit 2 Interp (test code=UNITINTERP2) Compatible Unit 2 Status (test code=UNITSTAT2) RE Product 3 Code (test code=PRODCODE3) E0336 Unit 3 ID (test code=UNITID3) [id number] Unit 3 ABO (test code=UNITABO3) O Unit 3 Rh (test code=UNITRH3) POS Unit 3 Interp (test code=UNITINTERP3) Compatible Unit 3 Status (test code=UNITSTAT3) RE Product 4 Code (test code=PRODCODE4) E4545 Unit 4 ID (test code=UNITID4) [id number] Unit 4 ABO (test code=UNITABO4) O Unit 4 Rh (test code=UNITRH4) POS Unit 4 Interp (test code=UNITINTERP4) Compatible Unit 4 Status (test code=UNITSTAT4) RE POC Glucose, [id number] 20:52:00 Test Item Value Reference Range Comments POC Glucose (test 184 mg/dL 70-115 If you consider your patient code=POCGLUC) critically ill, the [facility] Accu-Chek InformII metershould not be used for Glucose determinations.Draw a venous Glucose and send to the Main Lab for Analysis. POC Glucose, [id number] 16:29:00 Test Item Value Reference Range Comments POC Glucose (test 224 mg/dL 70-115 If you consider your patient code=POCGLUC) critically ill, the [facility] Accu-Chek InformII metershould not be used for Glucose determinations.Draw a venous Glucose and send to the Main Lab for Analysis. POC Glucose, [id number] 12:10:00 Test Item Value Reference Range Comments POC Glucose (test 233 mg/dL 70-115 If you consider your patient code=POCGLUC) critically ill, the [facility] Accu-Chek InformII metershould not be used for Glucose determinations.Draw a venous Glucose and send to the Main Lab for Analysis. POC Glucose, [id number] 07:57:00 Test Item Value Reference Range Comments POC Glucose (test 234 mg/dL 70-115 If you consider your patient code=POCGLUC) critically ill, the [facility] Accu-Chek InformII metershould not be used for Glucose determinations.Draw a venous Glucose and send to the Main Lab for Analysis. Basic Metabolic [id number] 06:50:00 Test Item Value Reference Range Comments Sodium (test code=NA) 133 mmol/L 135-145 Potassium (test code=K) 4.0 mmol/L 3.5-5.1 Chloride (test code=CL) 94 mmol/L 98-105 Carbon Dioxide (test 19 mmol/L 22-29 code=CO2) Glucose (test code=GLU) 255 mg/dL 70-115 Blood Urea Nitrogen 10 mg/dL 8-23 (test code=BUN) Creatinine (test 0.6 mg/dL 0.7-1.2 code=CREAT) Calcium (test code=CA) 8.9 mg/dL 8.3-10.5 BUN/Creatinine Ratio 16.7 (test code=BCRATIO) Anion Gap (test 20 mmol/L 7-16 code=AGAP) Estimated GFR (test >60 mL/min/1.73m2 eGFR (estimated Glomerular code=GFR) Filtration Rate) is an estimated value,calculated from the patient's serum creatinine using the MDRD equation.It is NOT the patient's actual GFR. The eGFR provides a more clinicallyuseful measure of kidney disease than serum creatinine alone.This calculation takes sex and race into account, if the informationis provided. If the race is not provided, and the patient isAfrican-Cam[place], multiply by 1.212. If sex is not provided, and thepatient is female, multiply by 0.742. Results for patients <18 years ofage have not been validated by the MDRD study and should be interpretedwith caution.eGFR Result Interpretation:eGFR > or=60 is in the Normal RangeeGFR < 60 may mean kidney diseaseeGFR < 15 may mean kidney failureRanges recommended by the National Kidney Foundation,http://nkdep.nih .gov Magnesium, [id number] 06:50:00 Test Item Value Reference Range Comments Magnesium (test code=MG) 1.8 mg/dL 1.7-2.5 CBC with [id number] 06:30:00 Test Item Value Reference Range Comments WBC (test code=WBC) 18.5 K/cumm 4.4-10.5 RBC (test code=RBC) 4.47 M/cumm 4.10-5.70 Hemoglobin (test code=HGB) 13.7 gm/dL 13.4-17.4 Hematocrit (test code=HCT) 39.9 % 38.7-52.0 MCV (test code=MCV) 89.1 fL 80-100 MCH (test code=MCH) 30.6 pg 27.0-32.5 MCHC (test code=MCHC) 34.4 g/dL 32.0-37.5 RDW (test code=RDW) 13.5 % 11.5-14.5 Platelet Count (test code=PLTCT) 233 K/cumm 140-440 MPV (test code=MPV) 7.6 fL Diff Method (test code=DIFFM) Auto Neutrophil (test code=NEUT) 84.1 % 36-70 Lymphocyte (test code=LYMPH) 6.6 % 12-44 Monocyte (test code=MONO) 8.4 % 0-11 Eosinophil (test code=EOS) 0.8 % 0-7 Basophil (test code=BASO) 0.1 % 0-2 Neutro Abs (test code=ANEUT) 15.6 K/cumm 1.6-7.4 Lymph Abs (test code=ALYMPH) 1.2 K/cumm 0.5-4.6 [place] Abs (test code=AMONO) 1.6 K/cumm 0.0-1.2 Eos Abs (test code=AEOS) 0.15 K/cumm 0.00-0.74 Baso Abs (test code=ABASO) 0.0 K/cumm 0.00-0.21 XR CHEST 1 [id number] 05:24:03AP Portable Chest Location Code [id number]: s/ p CABGCOMPARISON: 01/30/2018FINDINGS: There is shallow inspiration. Cardiac silhouette is enlarged. Againnoted is a small left pleural effusion and left basilar consolidationwhich is consistent with atelectasis or pneumonia. There is nopneumothorax. Right IJ line is stable. There is a dilated gastric airbubble.IMPRESSION:1. No significant change. Left effusion and basilar consolidation.2. Dilated air-filled stomach.POC Glucose, [id number] 20:51: 00 Test Item Value Reference Range Comments POC Glucose (test 200 mg/dL 70-115 If you consider your patient code=POCGLUC) critically ill, the [facility] Accu-Chek InformII metershould not be used for Glucose determinations.Draw a venous Glucose and send to the Main Lab for Analysis. XR CHEST 1 [id number] 19:50:46Portable chest one view.HISTORY: Status post CABGLocation R 16COMMENT: Comparison chest one view 01/30/2018. Sternal retention wires.Calcification mild tortuosity of thoracic aorta. Cardiomegaly. Nopleural effusion. Left lower lobe infiltrate may represent atelectasis.Lungs are otherwise clear. Right jugular central venous catheter tipprojects over the right atrium. Bone is unremarkable.IMPRESSION:1. Cardiomegaly. Prior thoracotomy.2. Left basilar infiltrate is more prominent than on prior study of and may represent atelectasis. Correlate clinically.POC Glucose, [id number] 16:01:00 Test Item Value Reference Range Comments POC Glucose (test 229 mg/dL 70-115 If you consider your patient code=POCGLUC) critically ill, the [facility] Accu-Chek InformII metershould not be used for Glucose determinations.Draw a venous Glucose and send to the Main Lab for Analysis. POC Glucose, [id number] 12:12:00 Test Item Value Reference Range Comments POC Glucose (test 212 mg/dL 70-115 If you consider your patient code=POCGLUC) critically ill, the [facility] Accu-Chek InformII metershould not be used for Glucose determinations.Draw a venous Glucose and send to the Main Lab for Analysis. POC Glucose, [id number] 09:41:00 Test Item Value Reference Range Comments POC Glucose (test 227 mg/dL 70-115 If you consider your patient code=POCGLUC) critically ill, the [facility] Accu-Chek InformII metershould not be used for Glucose determinations.Draw a venous Glucose and send to the Main Lab for Analysis. XR CHEST 1 [id number] 09:16:26CHEST 1 VIEWCLINICAL INFORMATION: chest tube removalCOMPARISON: January 30, 2018FINDINGS:Since the comparison study, the left- sided chest tube and mediastinaldrain have been removed. No pneumothorax isidentified. Subsegmentalatelectasis is seen in the left lung base. The right lung is clear. The cardiac silhouette is mildly enlarged. Mild vascular congestion isnoted. Median sternotomy wires and a right jugular central line appearunchanged.IMPRESSION:1. Status post chest tube removal. No pneumothorax is identified.2. Pulmonary vascular congestion.3. Subsegmental atelectasis in the left lower lobe.LOCATION: R16XR CHEST 1 [id number] 06:41:14Location code : R 15HISTORY: chest tubes.COMPARISON: January 29, 2018FINDINGS: Right IJ catheter remains present and unchanged position.Patient is status post median sternotomy with the cardiac silhouette isenlarged.The pulmonary vasculature is normal.Left lower lobe subsegmental atelectasis with smallleft pleuraleffusion is present.No evidence of upper lobe consolidation or pneumothorax is present.IMPRESSION: 1. No significant interval changePOC Glucose, [id number] 06:14:00 Test Item Value Reference Range Comments POC Glucose (test 234 mg/dL 70-115 If you consider your patient code=POCGLUC) critically ill, the [facility] Accu-Chek InformII metershould not be used for Glucose determinations.Draw a venous Glucose and send to the Main Lab for Analysis. CBC with [id number] 04:47:00 Test Item Value Reference Range Comments WBC (test code=WBC) 23.8 K/cumm 4.4-10.5 RBC (test code=RBC) 4.60 M/cumm 4.10-5.70 Hemoglobin (test code=HGB) 13.7 gm/dL 13.4-17.4 Hematocrit (test code=HCT) 41.6 % 38.7-52.0 MCV (test code=MCV) 90.5 fL 80-100 MCH (test code=MCH) 29.9 pg 27.0-32.5 MCHC (test code=MCHC) 33.0 g/dL 32.0-37.5 RDW (test code=RDW) 14.0 % 11.5-14.5 Platelet Count (test code=PLTCT) 239 K/cumm 140-440 MPV (test code=MPV) 10.9 fL Diff Method (test code=DIFFM) Manual Neutrophil (test code=NEUT) 79.0 % 36-70 Bands (test code=BAND) 1.0 % 0-6 Lymphocyte (test code=LYMPH) 14.0 % 12-44 Monocyte (test code=MONO) 6.0 % 0-11 Neutro Abs (test code=ANEUT) 19.0 K/cumm 1.6-7.4 Lymph Abs (test code=ALYMPH) 3.3 K/cumm 0.5-4.6 [place] Abs (test code=AMONO) 1.4 K/cumm 0.0-1.2 RBC Morphology (test code=RBCMRPH) Normal Platelet Est (test code=PLTEST) Normal Platelet on Smear Basic Metabolic [id number] 04:19:00 Test Item Value Reference Range Comments Sodium (test code=NA) 133 mmol/L 135-145 Potassium (test code=K) 3.8 mmol/L 3.5-5.1 Chloride (test code=CL) 95 mmol/L 98-105 Carbon Dioxide (test 18 mmol/L 22-29 code=CO2) Glucose (test code=GLU) 233 mg/dL 70-115 Blood Urea Nitrogen 9 mg/dL 8-23 (test code=BUN) Creatinine (test 0.8 mg/dL 0.7-1.2 code=CREAT) Calcium (test code=CA) 8.8 mg/dL 8.3-10.5 BUN/Creatinine Ratio 11.3 (test code=BCRATIO) Anion Gap (test 20 mmol/L 7-16 code=AGAP) Estimated GFR (test >60 mL/min/1.73m2 eGFR (estimated Glomerular code=GFR) Filtration Rate) is an estimated value,calculated from the patient's serum creatinine using the MDRD equation.It is NOT the patient's actual GFR. The eGFR provides a more clinicallyuseful measure of kidney disease than serum creatinine alone.This calculation takes sex and race into account, if the informationis provided. If the race is not provided, and the patient isAfrican-Cam[place], multiply by 1.212. If sex is not provided, and thepatient is female, multiply by 0.742. Results for patients <18 years ofage have not been validated by the MDRD study and should be interpretedwith caution.eGFR Result Interpretation:eGFR > or=60 is in the Normal RangeeGFR < 60 may mean kidney diseaseeGFR < 15 may mean kidney failureRanges recommended by the National Kidney Foundation,http://nkdep.nih .gov [id number] 04:19:00 Test Item Value Reference Range Comments Phosphorus (test code=PO4) 2.0 mg/dL 2.70-4.50 Magnesium, [id number] 04:19:00 Test Item Value Reference Range Comments Magnesium (test code=MG) 2.0 mg/dL 1.7-2.5 POC Glucose, [id number] 21:37:00 Test Item Value Reference Range Comments POC Glucose (test 217 mg/dL 70-115 If you consider your patient code=POCGLUC) critically ill, the [facility] Accu-Chek InformII metershould not be used for Glucose determinations.Draw a venous Glucose and send to the Main Lab for Analysis. POC Glucose, [id number] 17:10:00 Test Item Value Reference Range Comments POC Glucose (test 271 mg/dL 70-115 If you consider your patient code=POCGLUC) critically ill, the [facility] Accu-Chek InformII metershould not be used for Glucose determinations.Draw a venous Glucose and send to the Main Lab for Analysis. Plateletpheresis 1 [id number] 12:51:00 Test Item Value Reference Range Comments Product 1 Code (test code=PRODCODE1) E6001 Unit 1 ID (test code=UNITID1) [id number] Unit 1 ABO (test code=UNITABO1) O Unit 1 Rh (test code=UNITRH1) POS Unit 1 Status (test code=UNITSTAT1) RE POC Glucose, [id number] 12:18:00 Test Item Value Reference Range Comments POC Glucose (test 288 mg/dL 70-115 If you consider your patient code=POCGLUC) critically ill, the [facility] Accu-Chek InformII metershould not be used for Glucose determinations.Draw a venous Glucose and send to the Main Lab for Analysis. POC Glucose, [id number] 08:28:00 Test Item Value Reference Range Comments POC Glucose (test 198 mg/dL 70-115 If you consider your patient code=POCGLUC) critically ill, the [facility] Accu-Chek InformII metershould not be used for Glucose determinations.Draw a venous Glucose and send to the Main Lab for Analysis. XR CHEST 1 [id number] 07:21:57STUDY: Chest radiographHISTORY: Evaluate chest.COMPARISON: 01/28/2018TECHNIQUE: Frontal view of the chest.SITE: L 11FINDINGS:Right IJ and right [place]-Linette catheter's are in unchanged position. Thepatientis status post median sternotomy. The previously seenendotracheal tube is not visualized. Again seenis a left chest tube.The cardiac silhouette is enlarged, stable. There is an increasedretrocardiac opacity with elevation of left hemidiaphragm compatiblewith atelectasis. A trace left pleural effusionis again noted. There isno pneumothorax. No acute osseous abnormalities are identified.IMPRESSION:1. Increased left basilar atelectasis with persistent trace leftpleural effusion.2. Endotracheal no longer visualized, correlate with extubation.CBC with [id number] 06:05:00 Test Item Value Reference Range Comments WBC (test code=WBC) 23.2 K/cumm 4.4-10.5 RBC (test code=RBC) 4.55 M/cumm 4.10-5.70 Hemoglobin (test code=HGB) 13.5 gm/dL 13.4-17.4 Hematocrit (test code=HCT) 41.6 % 38.7-52.0 MCV (test code=MCV) 91.3 fL 80-100 MCH (test code=MCH) 29.7 pg 27.0-32.5 MCHC (test code=MCHC) 32.6 g/dL 32.0-37.5 RDW (test code=RDW) 14.0 % 11.5-14.5 Platelet Count (test code=PLTCT) 203 K/cumm 140-440 MPV (test code=MPV) 10.2 fL Diff Method (test code=DIFFM) Manual Neutrophil (test code=NEUT) 78.0 % 36-70 Bands (test code=BAND) 6.0 % 0-6 Lymphocyte (test code=LYMPH) 6.0 % 12-44 Monocyte (test code=MONO) 10.0 % 0-11 Neutro Abs (test code=ANEUT) 19.5 K/cumm 1.6-7.4 Lymph Abs (test code=ALYMPH) 1.4 K/cumm 0.5-4.6 [place] Abs (test code=AMONO) 2.3 K/cumm 0.0-1.2 RBC Morphology (test code=RBCMRPH) Normal Platelet Est (test code=PLTEST) Normal Platelet on Smear Basic Metabolic [id number] 05:38:00 Test Item Value Reference Range Comments Sodium (test code=NA) 136 mmol/L 135-145 Potassium (test code=K) 4.6 mmol/L 3.5-5.1 Chloride (test code=CL) 102 mmol/L 98-105 Carbon Dioxide (test 17 mmol/L 22-29 code=CO2) Glucose (test code=GLU) 224 mg/dL 70-115 Blood Urea Nitrogen 11 mg/dL 8-23 (test code=BUN) Creatinine (test 1.0 mg/dL 0.7-1.2 code=CREAT) Calcium (test code=CA) 8.4 mg/dL 8.3-10.5 BUN/Creatinine Ratio 11.0 (test code=BCRATIO) Anion Gap (test 17 mmol/L 7-16 code=AGAP) Estimated GFR (test >60 mL/min/1.73m2 eGFR (estimated Glomerular code=GFR) Filtration Rate) is an estimated value,calculated from the patient's serum creatinine using the MDRD equation.It is NOT the patient's actual GFR. The eGFR provides a more clinicallyuseful measure of kidney disease than serum creatinine alone.This calculation takes sex and race into account, if the informationis provided. If the race is not provided, and the patient isAfrican-[place], multiply by 1.212. If sex is not provided, and thepatient is female, multiply by 0.742. Results for patients <18 years ofage have not been validated by the MDRD study and should be interpretedwith caution.eGFR Result Interpretation:eGFR > or=60 is in the Normal RangeeGFR < 60 may mean kidney diseaseeGFR < 15 may mean kidney failureRanges recommended by the National Kidney Foundation,http://nkdep.nih .gov [id number] 05:38:00 Test Item Value Reference Range Comments Phosphorus (test code=PO4) 3.9 mg/dL 2.70-4.50 Magnesium, [id number] 05:38:00 Test Item Value Reference Range Comments Magnesium (test code=MG) 2.1 mg/dL 1.7-2.5 POC Glucose, [id number] 04:18:00 Test Item Value Reference Range Comments POC Glucose (test 200 mg/dL 70-115 If you consider your patient code=POCGLUC) critically ill, the [facility] Accu-Chek InformII metershould not be used for Glucose determinations.Draw a venous Glucose and send to the Main Lab for Analysis. POC Glucose, [id number] 01:17:00 Test Item Value Reference Range Comments POC Glucose (test 191 mg/dL 70-115 If you consider your patient code=POCGLUC) critically ill, the [facility] Accu-Chek InformII metershould not be used for Glucose determinations.Draw a venous Glucose and send to the Main Lab for Analysis. POC Glucose, [id number] 22:47:00 Test Item Value Reference Range Comments POC Glucose (test 207 mg/dL 70-115 If you consider your patient code=POCGLUC) critically ill, the [facility] Accu-Chek InformII metershould not be used for Glucose determinations.Draw a venous Glucose and send to the Main Lab for Analysis. POC Glucose, [id number] 21:09:00 Test Item Value Reference Range Comments POC Glucose (test 223 mg/dL 70-115 If you consider your patient code=POCGLUC) critically ill, the [facility] Accu-Chek InformII metershould not be used for Glucose determinations.Draw a venous Glucose and send to the Main Lab for Analysis. Basic Metabolic [id number] 20:37:00 Test Item Value Reference Range Comments Sodium (test code=NA) 139 mmol/L 135-145 Potassium (test code=K) 4.3 mmol/L 3.5-5.1 Chloride (test code=CL) 104 mmol/L 98-105 Carbon Dioxide (test 19 mmol/L 22-29 code=CO2) Glucose (test code=GLU) 220 mg/dL 70-115 Blood Urea Nitrogen 13 mg/dL 8-23 (test code=BUN) Creatinine (test 1.1 mg/dL 0.7-1.2 code=CREAT) Calcium (test code=CA) 8.6 mg/dL 8.3-10.5 BUN/Creatinine Ratio 11.8 (test code=BCRATIO) Anion Gap (test 16 mmol/L 7-16 code=AGAP) Estimated GFR (test >60 mL/min/1.73m2 eGFR (estimated Glomerular code=GFR) Filtration Rate) is an estimated value,calculated from the patient's serum creatinine using the MDRD equation.It is NOT the patient's actual GFR. The eGFR provides a more clinicallyuseful measure of kidney disease than serum creatinine alone.This calculation takes sex and race into account, if the informationis provided. If the race is not provided, and the patient isAfrican-[place], multiply by 1.212. If sex is not provided, and thepatient is female, multiply by 0.742. Results for patients <18 years ofage have not been validated by the MDRD study and should be interpretedwith caution.eGFR Result Interpretation:eGFR > or=60 is in the Normal RangeeGFR < 60 may mean kidney diseaseeGFR < 15 may mean kidney failureRanges recommended by the National Kidney Foundation,http://nkdep.nih .gov Magnesium, [id number] 18:30:00 Test Item Value Reference Range Comments Magnesium (test code=MG) 2.0 mg/dL 1.7-2.5 [id number] 18:30:00 Test Item Value Reference Range Comments Phosphorus (test code=PO4) 3.4 mg/dL 2.70-4.50 POC Glucose, [id number] 16:37:00 Test Item Value Reference Range Comments POC Glucose (test 216 mg/dL 70-115 If you consider your patient code=POCGLUC) critically ill, the [facility] Accu-Chek InformII metershould not be used for Glucose determinations.Draw a venous Glucose and send to the Main Lab for Analysis. POC Glucose, [id number] 15:05:00 Test Item Value Reference Range Comments POC Glucose (test 237 mg/dL 70-115 If you consider your patient code=POCGLUC) critically ill, the [facility] Accu-Chek InformII metershould not be used for Glucose determinations.Draw a venous Glucose and send to the Main Lab for Analysis. POC Glucose, [id number] 14:05:00 Test Item Value Reference Range Comments POC Glucose (test 224 mg/dL 70-115 If you consider your patient code=POCGLUC) critically ill, the [facility] Accu-Chek InformII metershould not be used for Glucose determinations.Draw a venous Glucose and send to the Main Lab for Analysis. CBC with [id number] 13:34:00 Test Item Value Reference Range Comments WBC (test code=WBC) 26.6 K/cumm 4.4-10.5 VERIFIED BY REPEAT TESTING READ BACK LAB VALUESLuis HART/HUMERA01/28/2018 @0815EDREASON - SURGERY RBC (test code=RBC) 4.73 M/cumm 4.10-5.70 Hemoglobin (test 14.0 gm/dL 13.4-17.4 code=HGB) Hematocrit (test 42.6 % 38.7-52.0 code=HCT) MCV (test code=MCV) 90.1 fL 80-100 MCH (test code=MCH) 29.7 pg 27.0-32.5 MCHC (test code=MCHC) 32.9 g/dL 32.0-37.5 RDW (test code=RDW) 13.3 % 11.5-14.5 Platelet Count (test 231 K/cumm 140-440 code=PLTCT) MPV (test code=MPV) 7.5 fL Diff Method (test Manual code=DIFFM) Neutrophil (test 86.9 % 36-70 code=NEUT) Lymphocyte (test 7.6 % 12-44 code=LYMPH) Monocyte (test code=MONO) 4.7 % 0-11 Eosinophil (test 0.4 % 0-7 code=EOS) Basophil (test code=BASO) 0.3 % 0-2 Neutro Abs (test 23.1 K/cumm 1.6-7.4 code=ANEUT) Lymph Abs (test 2.0 K/cumm 0.5-4.6 code=ALYMPH) [place] Abs (test 1.3 K/cumm 0.0-1.2 code=AMONO) Eos Abs (test code=AEOS) 0.12 K/cumm 0.00-0.74 Baso Abs (test 0.1 K/cumm 0.00-0.21 code=ABASO) RBC Morphology (test Normal code=RBCMRPH) Platelet Est (test Normal Platelet on code=PLTEST) Smear POC Glucose, [id number] 13:12:00 Test Item Value Reference Range Comments POC Glucose (test 210 mg/dL 70-115 If you consider your patient code=POCGLUC) critically ill, the [facility] Accu-Chek InformII metershould not be used for Glucose determinations.Draw a venous Glucose and send to the Main Lab for Analysis. Magnesium, [id number] 12:09:00 Test Item Value Reference Range Comments Magnesium (test code=MG) 2.5 mg/dL 1.7-2.5 Basic Metabolic [id number] 12:09:00 Test Item Value Reference Range Comments Sodium (test code=NA) 140 mmol/L 135-145 Potassium (test code=K) 4.1 mmol/L 3.5-5.1 Chloride (test code=CL) 104 mmol/L 98-105 Carbon Dioxide (test 23 mmol/L 22-29 code=CO2) Glucose (test code=GLU) 211 mg/dL 70-115 Blood Urea Nitrogen 9 mg/dL 8-23 (test code=BUN) Creatinine (test 0.8 mg/dL 0.7-1.2 code=CREAT) Calcium (test code=CA) 8.9 mg/dL 8.3-10.5 BUN/Creatinine Ratio 11.3 (test code=BCRATIO) Anion Gap (test 13 mmol/L 7-16 code=AGAP) Estimated GFR (test >60 mL/min/1.73m2 eGFR (estimated Glomerular code=GFR) Filtration Rate) is an estimated value,calculated from the patient's serum creatinine using the MDRD equation.It is NOT the patient's actual GFR. The eGFR provides a more clinicallyuseful measure of kidney disease than serum creatinine alone.This calculation takes sex and race into account, if the informationis provided. If the race is not provided, and the patient isAfrican-[place], multiply by 1.212. If sex is not provided, and thepatient is female, multiply by 0.742. Results for patients <18 years ofage have not been validated by the MDRD study and should be interpretedwith caution.eGFR Result Interpretation:eGFR > or=60 is in the Normal RangeeGFR < 60 may mean kidney diseaseeGFR < 15 may mean kidney failureRanges recommended by the National Kidney Foundation,http://nkdep.nih .gov [id number] 12:06:00 Test Item Value Reference Range Comments Phosphorus (test code=PO4) 2.9 mg/dL 2.70-4.50 Partial Thromboplastin [id number] 12:02:00 Test Item Value Reference Range Comments aPTT (test code=PTT) 27.70 seconds 24.39-37.25 Prothrombin [id number] 12:02:00 Test Item Value Reference Range Comments PT (test code=PT) 12.80 seconds 9.78-13.35 INR (test code=INR) 1.13 Ratio 0.6-1.2 Blood [id number] 11:56:00 Test Item Value Reference Range Comments pH, Blood Gas (test code=BGPH) 7.330 pH Units 7.35-7.45 pCO2 (test code=PCO2) 41.9 mm Hg 35-45 pO2 (test code=PO2) 108.0 mm Hg 80-100 Bicarbonate (test code=HCO3) 22.0 mmol/L 22.0-26.0 Base Excess (test code=BE) -3.8 mmol/L O2 Saturation (test code=O2SAT) 98.7 % 80.0-100.0 tHB (test code=RTHB) 15.3 gm/dL 12.2-17.4 Hematocrit, Blood Gas (test 47.0 % 34.0-52.0 code=BGHCT) O2Hb (test code=RO2HB) 97 80-100 Carboxyhemoglobin (test 1.0 % 0.0-20.0 code=CARHGB) Methemoglobin (test code=METHGB) 1.1 % 0.0-20.0 FIO2 % (test code=FIO2) 50 % Patient Temperature (test 37.0 Degrees Celcius code=PTTEMP) Comment (test code=COMMENT) qns,mouna,Po2,toDrNguyen@11 57TA3 Puncture Site (test code=PUNSITE) Art line Peep (test code=RPEEP) 5 Respiratory Rate (test code=RESP 14 RATE) Tidal Volume (test code=TIDALVOL) 0.500 Liters XR CHEST 1 [id number] 11:48:46CHEST 1 VIEWCLINICAL INFORMATION: post cabCOMPARISON: None availableFINDINGS:The tip of the endotracheal tube terminates 8.5 cm from the elaina. Aright internal jugular vein approach central line terminates in the highright atrium. A right internal jugular vein approach [place]-Linette catheterterminatesin the right pulmonary artery. A mediastinal drain andleft-sided chest tube are in place.The lungs are slightly underexpanded. Subsegmental atelectasis is seenin the left retrocardiac region. There is a trace left pleuraleffusion. No pneumothorax is present. The heart is mildly enlarged.IMPRESSION:1. Postoperative lines and tubes as described. The endotracheal tubeterminates 8.5 cm from the elaina.2. Small left pleural effusion and left basilar atelectasis.LOCATION: R16[facility] Glucose, [id number] 11:15:00 Test Item Value Reference Range Comments POC Glucose (test 168 mg/dL 70-115 If you consider your patient code=POCGLUC) critically ill, the [facility] Accu-Chek InformII metershould not be used for Glucose determinations.Draw a venous Glucose and send to the Main Lab for Analysis. Blood Gas+Lytes+Glu+Ca+Hgb+Hct+[id number] 10:26:00 Test Item Value Reference Range Comments pH, Blood Gas (test code=BGPH) 7.446 pH Units 7.35-7.45 pCO2 (test code=PCO2) 31.7 mm Hg 35-45 pO2 (test code=PO2) 243.0 mm Hg 80-100 Bicarbonate (test code=HCO3) 21.8 mmol/L 22.0-26.0 Base Excess (test code=BE) -1.6 mmol/L O2 Saturation (test code=O2SAT) 100.2 % 80.0-100.0 Sodium, Blood Gas (test code=BGNA) 137 mmol/L 135-145 Potassium, Blood Gas (test code=BGK) 4.0 mmol/L 3.5-4.5 Chloride, Blood Gas (test code=BGCL) 109 mmol/L 98-105 Calcium, Ionized, Blood Gas (test 1.36 mmol/L 1.00-1.50 code=BGCAI) Glucose, Blood Gas (test code=BGGLU) 216 mg/dL 75-115 tHB (test code=RTHB) 11.3 gm/dL 12.2-17.4 Hematocrit, Blood Gas (test code=BGHCT) 34.6 % 34.0-52.0 O2Hb (test code=RO2HB) 98 80-100 Carboxyhemoglobin (test code=CARHGB) 1.0 % 0.0-20.0 Methemoglobin (test code=METHGB) 1.3 % 0.0-20.0 FIO2 % (test code=FIO2) 100 % Patient Temperature (test code=PTTEMP) 37.0 Degrees Celcius Puncture Site (test code=PUNSITE) Art line Drawing Tech ID (test code=DRAWTECH) dr benoit iPAP (test code=IPAP) 0 cmH2O Respiratory Rate (test code=RESP RATE) 0 Lactic Acid, Blood Gas (test code=BGLA) 1.8 mmol/L Blood Gas+Lytes+Glu+Ca+Hgb+Hct+[id number] 10:08:00 Test Item Value Reference Range Comments pH, Blood Gas (test code=BGPH) 7.414 pH Units 7.35-7.45 pCO2 (test code=PCO2) 36.4 mm Hg 35-45 pO2 (test code=PO2) 253.0 mm Hg 80-100 Bicarbonate (test code=HCO3) 23.3 mmol/L 22.0-26.0 Base Excess (test code=BE) -1.0 mmol/L O2 Saturation (test code=O2SAT) 100.1 % 80.0-100.0 Sodium, Blood Gas (test code=BGNA) 137 mmol/L 135-145 Potassium, Blood Gas (test code=BGK) 4.4 mmol/L 3.5-4.5 Chloride, Blood Gas (test code=BGCL) 107 mmol/L 98-105 Calcium, Ionized, Blood Gas (test 1.04 mmol/L 1.00-1.50 code=BGCAI) Glucose, Blood Gas (test code=BGGLU) 194 mg/dL 75-115 tHB (test code=RTHB) 11.5 gm/dL 12.2-17.4 Hematocrit, Blood Gas (test code=BGHCT) 35.1 % 34.0-52.0 O2Hb (test code=RO2HB) 98 80-100 Carboxyhemoglobin (test code=CARHGB) 0.9 % 0.0-20.0 Methemoglobin (test code=METHGB) 1.6 % 0.0-20.0 FIO2 % (test code=FIO2) 100 % Patient Temperature (test code=PTTEMP) 37.0 Degrees Celcius Puncture Site (test code=PUNSITE) Art line Drawing Tech ID (test code=DRAWTECH) iPAP (test code=IPAP) 0 cmH2O Respiratory Rate (test code=RESP RATE) 0 Lactic Acid, Blood Gas (test code=BGLA) 1.7 mmol/L Blood Gas+Lytes+Glu+Ca+Hgb+Hct+[id number] 09:33:00 Test Item Value Reference Range Comments pH, Blood Gas (test code=BGPH) 7.429 pH Units 7.35-7.45 pCO2 (test code=PCO2) 39.3 mm Hg 35-45 pO2 (test code=PO2) 371.0 mm Hg 80-100 Bicarbonate (test code=HCO3) 26.0 mmol/L 22.0-26.0 Base Excess (test code=BE) 1.6 mmol/L O2 Saturation (test code=O2SAT) 100.2 % 80.0-100.0 Sodium, Blood Gas (test code=BGNA) 138 mmol/L 135-145 Potassium, Blood Gas (test code=BGK) 4.1 mmol/L 3.5-4.5 Chloride, Blood Gas (test code=BGCL) 105 mmol/L 98-105 Calcium, Ionized, Blood Gas (test 1.03 mmol/L 1.00-1.50 code=BGCAI) Glucose, Blood Gas (test code=BGGLU) 182 mg/dL 75-115 tHB (test code=RTHB) 11.3 gm/dL 12.2-17.4 Hematocrit, Blood Gas (test code=BGHCT) 34.6 % 34.0-52.0 O2Hb (test code=RO2HB) 98 80-100 Carboxyhemoglobin (test code=CARHGB) 0.9 % 0.0-20.0 Methemoglobin (test code=METHGB) 1.5 % 0.0-20.0 FIO2 % (test code=FIO2) 100 % Patient Temperature (test code=PTTEMP) 37.0 Degrees Celcius Puncture Site (test code=PUNSITE) Art line Drawing Tech ID (test code=DRAWTECH) iPAP (test code=IPAP) 0 cmH2O Respiratory Rate (test code=RESP RATE) 0 Lactic Acid, Blood Gas (test code=BGLA) 1.1 mmol/L Blood Gas+Lytes+Glu+Ca+Hgb+Hct+[id number] 08:16:00 Test Item Value Reference Range Comments pH, Blood Gas (test code=BGPH) 7.469 pH Units 7.35-7.45 pCO2 (test code=PCO2) 34.3 mm Hg 35-45 pO2 (test code=PO2) 338.0 mm Hg 80-100 Bicarbonate (test code=HCO3) 24.9 mmol/L 22.0-26.0 Base Excess (test code=BE) 1.7 mmol/L O2 Saturation (test code=O2SAT) 100.2 % 80.0-100.0 Sodium, Blood Gas (test code=BGNA) 140 mmol/L 135-145 Potassium, Blood Gas (test code=BGK) 3.8 mmol/L 3.5-4.5 Chloride, Blood Gas (test code=BGCL) 107 mmol/L 98-105 Calcium, Ionized, Blood Gas (test 1.19 mmol/L 1.00-1.50 code=BGCAI) Glucose, Blood Gas (test code=BGGLU) 130 mg/dL 75-115 tHB (test code=RTHB) 15.2 gm/dL 12.2-17.4 Hematocrit, Blood Gas (test code=BGHCT) 46.7 % 34.0-52.0 O2Hb (test code=RO2HB) 98 80-100 Carboxyhemoglobin (test code=CARHGB) 1.0 % 0.0-20.0 Methemoglobin (test code=METHGB) 1.4 % 0.0-20.0 FIO2 % (test code=FIO2) 100 % Patient Temperature (test code=PTTEMP) 37.0 Degrees Celcius Puncture Site (test code=PUNSITE) Art line Drawing Tech ID (test code=DRAWTECH) dr benoit iPAP (test code=IPAP) 0 cmH2O Respiratory Rate (test code=RESP RATE) 0 Lactic Acid, Blood Gas (test code=BGLA) 1.1 mmol/L Antibody Screen - [id number] 08:09:00 Test Item Value Reference Range Comments Antibody Screen (test code=ABSCR) Negative Blood Type and [id number] 07:52:00 Test Item Value Reference Range Comments ABO type (test code=ABO) O Rh Type (test code=RH) Positive Comprehensive Metabolic [id number] 07:41:00 Test Item Value Reference Range Comments Sodium (test code=NA) 141 mmol/L 135-145 Potassium (test code=K) 4.3 mmol/L 3.5-5.1 Chloride (test code=CL) 101 mmol/L 98-105 Carbon Dioxide (test 28 mmol/L 22-29 code=CO2) Glucose (test code=GLU) 127 mg/dL 70-115 Blood Urea Nitrogen 9 mg/dL 8-23 (test code=BUN) Creatinine (test 0.8 mg/dL 0.7-1.2 code=CREAT) Calcium (test code=CA) 9.8 mg/dL 8.3-10.5 Prot Total (test 7.2 g/dL 6.4-8.3 code=TP) Albumin (test code=ALB) 4.4 g/dL 3.5-5.2 A/G Ratio (test 1.6 Ratio code=AGRATIO) Globulin (test 2.8 2.9-3.1 code=GLOB) Bili Total (test 0.6 mg/dL 0.1-0.9 code=TBIL) Alk Phos (test 79 U/L 40-129 code=APHOS) AST (test code=AST) 21 U/L 1-40 ALT (test code=ALT) 29 U/L 1-41 BUN/Creatinine Ratio 11.3 (test code=BCRATIO) Anion Gap (test 12 mmol/L 7-16 code=AGAP) Estimated GFR (test >60 mL/min/1.73m2 eGFR (estimated Glomerular code=GFR) Filtration Rate) is an estimated value,calculated from the patient's serum creatinine using the MDRD equation.It is NOT the patient's actual GFR. The eGFR provides a more clinicallyuseful measure of kidney disease than serum creatinine alone.This calculation takes sex and race into account, if the informationis provided. If the race is not provided, and the patient isAfrican-[place], multiply by 1.212. If sex is not provided, and thepatient is female, multiply by 0.742. Results for patients <18 years ofage have not been validated by the MDRD study and should be interpretedwith caution.eGFR Result Interpretation:eGFR > or=60 is in the Normal RangeeGFR < 60 may mean kidney diseaseeGFR < 15 may mean kidney failureRanges recommended by the National Kidney Foundation,http://nkdep.nih .gov Partial Thromboplastin [id number] 07:38:00 Test Item Value Reference Range Comments aPTT (test code=PTT) 34.30 seconds 24.39-37.25 Prothrombin [id number] 07:38:00 Test Item Value Reference Range Comments PT (test code=PT) 10.30 seconds 9.78-13.35 INR (test code=INR) 0.90 Ratio 0.6-1.2 CBC with [id number] 07:29:00 Test Item Value Reference Range Comments WBC (test code=WBC) 9.2 K/cumm 4.4-10.5 RBC (test code=RBC) 5.08 M/cumm 4.10-5.70 Hemoglobin (test code=HGB) 15.1 gm/dL 13.4-17.4 Hematocrit (test code=HCT) 45.7 % 38.7-52.0 MCV (test code=MCV) 89.9 fL 80-100 MCH (test code=MCH) 29.6 pg 27.0-32.5 MCHC (test code=MCHC) 33.0 g/dL 32.0-37.5 RDW (test code=RDW) 13.7 % 11.5-14.5 Platelet Count (test code=PLTCT) 418 K/cumm 140-440 MPV (test code=MPV) 10.4 fL Diff Method (test code=DIFFM) Auto Neutrophil (test code=NEUT) 58.8 % 36-70 Lymphocyte (test code=LYMPH) 29.7 % 12-44 Monocyte (test code=MONO) 9.4 % 0-11 Eosinophil (test code=EOS) 1.7 % 0-7 Basophil (test code=BASO) 0.4 % 0-2 Neutro Abs (test code=ANEUT) 5.4 K/cumm 1.6-7.4 Lymph Abs (test code=ALYMPH) 2.7 K/cumm 0.5-4.6 [place] Abs (test code=AMONO) 0.9 K/cumm 0.0-1.2 Eos Abs (test code=AEOS) 0.15 K/cumm 0.00-0.74 Baso Abs (test code=ABASO) 0.0 K/cumm 0.00-0.21 POC Glucose, [id number] 12:40:00 Test Item Value Reference Range Comments POC Glucose (test 114 mg/dL 70-115 If you consider your patient code=POCGLUC) critically ill, the Sariah Accu-Chek InformII metershould not be used for Glucose determinations.Draw a venous Glucose and send to the Main Lab for Analysis. Glycosylated [id number] 00:43:00 Test Item Value Reference Range Comments HBA1c (test code=HBA1C) 6.6 % 4.8-5.9 Comprehensive Metabolic [id number] 23:29:00 Test Item Value Reference Range Comments Sodium (test code=NA) 135 mmol/L 135-145 Potassium (test code=K) 4.2 mmol/L 3.5-5.1 Chloride (test code=CL) 96 mmol/L 98-105 Carbon Dioxide (test 23 mmol/L 22-29 code=CO2) Glucose (test code=GLU) 114 mg/dL 70-115 Blood Urea Nitrogen 14 mg/dL 8-23 (test code=BUN) Creatinine (test 1.0 mg/dL 0.7-1.2 code=CREAT) Calcium (test code=CA) 9.6 mg/dL 8.3-10.5 Prot Total (test 7.0 g/dL 6.4-8.3 code=TP) Albumin (test code=ALB) 4.3 g/dL 3.5-5.2 A/G Ratio (test 1.6 Ratio code=AGRATIO) Globulin (test 2.7 2.9-3.1 code=GLOB) Bili Total (test 0.5 mg/dL 0.1-0.9 code=TBIL) Alk Phos (test 76 U/L 40-129 code=APHOS) AST (test code=AST) 16 U/L 1-40 ALT (test code=ALT) 25 U/L 1-41 BUN/Creatinine Ratio 14.0 (test code=BCRATIO) Anion Gap (test 16 mmol/L 7-16 code=AGAP) Estimated GFR (test >60 mL/min/1.73m2 eGFR (estimated Glomerular code=GFR) Filtration Rate) is an estimated value,calculated from the patient's serum creatinine using the MDRD equation.It is NOT the patient's actual GFR. The eGFR provides a more clinicallyuseful measure of kidney disease than serum creatinine alone.This calculation takes sex and race into account, if the informationis provided. If the race is not provided, and the patient isAfrican-Cameroonian, multiply by 1.212. If sex is not provided, and thepatient is female, multiply by 0.742. Results for patients <18 years ofage have not been validated by the MDRD study and should be interpretedwith caution.eGFR Result Interpretation:eGFR > or=60 is in the Normal RangeeGFR < 60 may mean kidney diseaseeGFR < 15 may mean kidney failureRanges recommended by the National Kidney Foundation,http://nkdep.nih .gov Lipid [id number] 23:29:00 Test Item Value Reference Range Comments Cholesterol (test 207 mg/dL 0-200 code=CHOL) Triglycerides (test 132 mg/dL 9-200 code=TRIG) HDL (test code=HDL) 56 mg/dL 40-60 Chol/HDL (test 3.7 Ratio 0.0-5.0 code=CHOLPHDL) LDL, Calculated (test 125 0-130 (NOTE)RISK OF HEART code=LDLC) DISEASEPublished by Cameroonian Heart AssociationAnalyte Optimal Boderline Increased RiskCHOL <200 200-239 >240TRIG <150 150-199 >200HDL Male: >60 <40HDL Female: >60 <50LDL <100 130-159 >160LDL NEAR OPTIMAL IS 100-129 VLDL (test code=VLDL) 26 mg/dL 5-40 LDL/HDL (test code=LDLPHDL) 2 CBC with [id number] 23:23:00 Test Item Value Reference Range Comments WBC (test code=WBC) 13.4 K/cumm 4.4-10.5 RBC (test code=RBC) 5.29 M/cumm 4.10-5.70 Hemoglobin (test code=HGB) 16.4 gm/dL 13.4-17.4 Hematocrit (test code=HCT) 47.6 % 38.7-52.0 MCV (test code=MCV) 90.0 fL 80-100 MCH (test code=MCH) 31.0 pg 27.0-32.5 MCHC (test code=MCHC) 34.5 g/dL 32.0-37.5 RDW (test code=RDW) 13.2 % 11.5-14.5 Platelet Count (test code=PLTCT) 341 K/cumm 140-440 MPV (test code=MPV) 11.2 fL Diff Method (test code=DIFFM) Auto Neutrophil (test code=NEUT) 67.9 % 36-70 Lymphocyte (test code=LYMPH) 22.0 % 12-44 Monocyte (test code=MONO) 8.5 % 0-11 Eosinophil (test code=EOS) 1.1 % 0-7 Basophil (test code=BASO) 0.5 % 0-2 Neutro Abs (test code=ANEUT) 9.1 K/cumm 1.6-7.4 Lymph Abs (test code=ALYMPH) 3.0 K/cumm 0.5-4.6 [place] Abs (test code=AMONO) 1.1 K/cumm 0.0-1.2 Eos Abs (test code=AEOS) 0.15 K/cumm 0.00-0.74 Baso Abs (test code=ABASO) 0.1 K/cumm 0.00-0.21
[2019-03-02 08:35] LABS: Absolute Monocytes 1.6 K/uL (0.1-1.3); Absolute Neutrophil 12.3 K/uL (1.8-8.0); Basophils % 0.4 % (0-1.3); Lymphocytes % 12.5 % (15.3-44.8); MPV 9.1 fL (7.6-11.3); Monocytes % 9.9 % (3.3-12.3); RBC Red Blood Cell Count 5.27 M/uL (4.33-5.43)
[2019-03-02 08:37] LABS: Protime INR 0.84
--- NOTE | 2019-03-02 08:41 | EKG ---
Test Date: 2019-03-02 Test Time: 07:54:29 Napper Grinder: RAYNA MEASUREMENT RESULTS: Intervals: Rate: 75 RI: 184 QRSD: 94 QT: 386 QTc: 431 [place]: P: 63 RI: 184 QRS: -9 T: 58 INTERPRETIVE STATEMENTS: Normal sinus rhythm with sinus arrhythmia Possible Left atrial enlargement Borderline ECG Compared to ECG 07/27/2001 19:48:00 No significant changes Electronically Signed On 03-02-19 08:40:21 CDT by Christopher Cuevas
[2019-03-02] MEDS ORDERED: FAMOTIDINE 20 MG/2 ML VIAL IV ONE (08:49)
[2019-03-02 08:54] LABS: ALT/SGPT 34 U/L (12-78); AST/SGOT 15 U/L (15-37); Albumin 3.9 g/dL (3.4-5.0); Alkaline Phosphatase 100 U/L (45-117); BUN Blood Urea Nitrogen 17 mg/dL (7-18); Bicarbonate 26 mmol/L (21-32); Bilirubin Direct 0.1 mg/dL (0-0.2); Bilirubin Total 0.5 mg/dL (0.2-1.0); Glucose Level 188 mg/dL (74-106); Lipase 83 U/L (73-393); Magnesium 2.2 mg/dL (1.8-2.4); NT PRO-BNP 169 pg/mL (<125); Potassium 3.9 mmol/L (3.5-5.1); Protein, Total 7.6 g/dL (6.4-8.2); Sodium Level 140 mmol/L (136-145); Troponin (Emerg Dept Use Only) < 0.02 ng/mL (0.0-0.045)
[2019-03-02] MEDS ORDERED: NA CHLORIDE 0.9% 1,000 ML ONE (09:13)
[2019-03-02 09:54] LABS: Urine Blood NEGATIVE (NEG); Urine Glucose TRACE (NEG); Urine Protein 1+ (NEG); Urine Specific Gravity 1.015 (1.005-1.030); Urine pH 6.5 (5.0-7.0)
--- NOTE | 2019-03-02 10:23 | RAD REPORT ---
EXAM DESCRIPTION: CTAbdomen Pelvis W Contrast - 03/02/2019 10:12 am CLINICAL HISTORY: Abdominal pain. ABD PAIN COMPARISON: No comparisons TECHNIQUE: Biphasic CT imaging of the abdomen and pelvis was performed with 100 ml non-ionic IV cont rast. All CT scans are performed using dose optimization technique as appropriate and may include automated exposure control or mA/KV adjustment according to patient size. FINDINGS: The lung bases are clear. The liver, spleen, adrenal glands and kidneys are within normal limits. Partial pancreatectomy change s noted. Cholecystectomy clips. No bowel obstruction, free air, free fluid or abscess. Fat containing bilateral inguinal hernias. The appendix is normal. No evidence of significant lymphadenopathy. No suspicious bony findings. IMPRESSION: No acute intra-abdominal or pelvic finding.
--- NOTE | 2019-03-02 11:02 | RAD REPORT ---
EXAM DESCRIPTION: [place] Single View03/02/2019 8:49 am CLINICAL HISTORY: Chest pain COMPARISON: 2016 FINDINGS: The lungs appear clear of acute infiltrate. The heart is mildly enlarged. Postsurgical changes involve the chest. IMPRESSION: No acute abnormalities displayed
--- NOTE | 2019-03-02 11:10 | EDPHYS ---
Physician Documentation [facility] Name: Jay Pool Age: 63 yrs Sex: Male : 1955 Arrival Date: 03/02/2019 Time: 07:54 Bed 6 Private MD: ED Physician Raman Gore HPI: 03/02 08:32 This 63 yrs old Male presents to ER via EMS with complaints of Chest Pain. manuel Historical: - Allergies: 08:05 PRAMOD INHIBITORS; ph - Home Meds: 08:05 Levemir 100 unit/mL subcutaneous soln [Active]; metformin 1,000 mg Oral tab 1 tab 2 ph times per day [Active]; glipizide 5 mg Oral tab 1 tab 2 times per day [Active]; atorvastatin 40 mg oral tab 1 tab once daily [Active]; lansoprazole oral 25 mg oral once daily [Active]; isosorbide mononitrate 30 mg Oral Tb24 1 tab once daily [Active]; Christina Chewable Aspirin 81 mg oral chew 1 tab once daily [Active]; metoprolol tartrate 50 mg Oral tab once daily [Active]; - PMHx: 08:05 Diabetes - NIDDM; PVC; ph - Immunization history:: Adult Immunizations unknown. - Social history:: Smoking status: Patient/guardian denies using tobacco. - Ebola Screening: : No symptoms or risks identified at this time. ROS: 08:32 Constitutional: Negative for fever, chills, and weight loss, Eyes: Negative for injury, manuel pain, redness, and discharge, ENT: Negative for injury, pain, and discharge, Neck: Negative for injury, pain, and swelling, Cardiovascular: Negative for chest pain, palpitations, and edema, Respiratory: Negative for shortness of breath, cough, wheezing, and pleuritic chest pain, Back: Negative for injury and pain, : Negative for injury, bleeding, discharge, and swelling, MS/Extremity: Negative for injury and deformity, Skin: Negative for injury, rash, and discoloration, Neuro: Negative for headache, weakness, numbness, tingling, and seizure, Psych: Negative for depression, anxiety, suicide ideation, homicidal ideation, and hallucinations, Allergy/Immunology: Negative for hives, rash, and allergies, Endocrine: Negative for neck swelling, polydipsia, polyuria, polyphagia, and marked weight changes, Hematologic/Lymphatic: Negative for swollen nodes, abnormal bleeding, and unusual bruising. 08:32 Abdomen/GI: Positive for abdominal pain, of the epigastric area, right upper quadrant and left upper quadrant. Exam: 08:32 Constitutional: This is a well developed, well nourished patient who is awake, alert, manuel and in no acute distress. Head/Face: Normocephalic, atraumatic. Eyes: Pupils equal round and reactive to light, extra-ocular motions intact. Lids and lashes normal. Conjunctiva and sclera are non-icteric and not injected. Cornea within normal limits. Periorbital areas with no swelling, redness, or edema. ENT: Nares patent. No nasal discharge, no septal abnormalities noted. Tympanic membranes are normal and external auditory canals are clear. Oropharynx with no redness, swelling, or masses, exudates, or evidence of obstruction, uvula midline. Mucous membranes moist. Neck: Trachea midline, no thyromegaly or masses palpated, and no cervical lymphadenopathy. Supple, full range of motion without nuchal rigidity, or vertebral point tenderness. No Meningismus. Chest/axilla: Normal chest wall appearance and motion. Nontender with no deformity. No lesions are appreciated. Cardiovascular: Regular rate and rhythm with a normal S1 and S2. No gallops, murmurs, or rubs. Normal PMI, no JVD. No pulse deficits. Respiratory: Lungs have equal breath sounds bilaterally, clear to auscultation and percussion. No rales, rhonchi or wheezes noted. No increased work of breathing, no retractions or nasal flaring. Back: No spinal tenderness. No costovertebral tenderness. Full range of motion. Male : Normal genitalia with no discharge or lesions. Skin: Warm, dry with normal turgor. Normal color with no rashes, no lesions, and no evidence of cellulitis. MS/ Extremity: Pulses equal, no cyanosis. Neurovascular intact. Full, normal range of motion. Neuro: Awake and alert, GCS 15, oriented to person, place, time, and situation. Cranial nerves II-XII grossly intact. Motor strength 5/5 in all extremities. Sensory grossly intact. Cerebellar exam normal. Normal gait. Psych: Awake, alert, with orientation to person, place and time. Behavior, mood, and affect are within normal limits. 08:32 Abdomen/GI: Inspection: abdomen appears normal, Bowel sounds: normal, Palpation: mild abdominal tenderness, in the epigastric area, right upper quadrant and left upper quadrant. Vital Signs: 07:59 BP 185 / 100; Pulse 83; Resp 18; Temp 97.9; Pulse Ox 97% on R/A; Weight 86.18 kg; ph Height 5 ft. 10 in. (177.80 cm); 08:50 BP 141 / 90; Pulse 74; Pulse Ox 98% on R/A; sg 10:00 BP 141 / 81; Pulse 66; Resp 16; Pulse Ox 97% on R/A; ph 11:00 BP 142 / 84; Pulse 68; Resp 18; Temp 98.0; Pulse Ox 99% on R/A; Pain 0/10; ph 07:59 Body Mass Index 27.26 (86.18 kg, 177.80 cm) ph MDM: 08:01 Patient medically screened. [facility] 08:32 Data reviewed: vital signs, nurses notes, lab test result(s), EKG, radiologic studies, [facility] CT scan, plain films. 03/02 08:01 Order name: Basic Metabolic Panel; Complete Time: 09:41 [facility] 03/02 08:01 Order name: CBC with Diff; Complete Time: 08:52 [facility] 03/02 08:01 Order name: LFT's; Complete Time: 09:41 [facility] 03/02 08:01 Order name: Magnesium; Complete Time: 09:41 [facility] 03/02 08:01 Order name: NT PRO-BNP; Complete Time: 09:41 [facility] 03/02 08:01 Order name: PT-INR; Complete Time: 08:52 [facility] 03/02 08:01 Order name: Troponin (emerg Dept Use Only); Complete Time: 09:41 [facility] 03/02 08:01 Order name: XRAY Chest (1 view); Complete Time: 11:03 [facility] 03/02 08:01 Order name: Lipase; Complete Time: 09:41 [facility] 03/02 08:32 Order name: Urine Culture [facility] 03/02 08:32 Order name: CT Abd/Pelvis - W/Contrast; Complete Time: 10:50 [facility] 03/02 08:33 Order name: Urine Dipstick--Ancillary (enter results); Complete Time: 10:50 em1 03/02 09:42 Order name: Troponin I; Complete Time: 11:08 [facility] 03/02 08:01 Order name: EKG; Complete Time: 08:02 [facility] 03/02 08:01 Order name: Cardiac monitoring; Complete Time: 08:22 [facility] 03/02 08:01 Order name: EKG - Nurse/Tech; Complete Time: 08:22 [facility] 03/02 08:01 Order name: IV Saline Lock; Complete Time: 08:22 [facility] 03/02 08:01 Order name: Labs collected and sent; Complete Time: 08:22 [facility] 03/02 08:01 Order name: O2 Per Protocol; Complete Time: 09:23 [facility] 03/02 08:01 Order name: O2 Sat Monitoring; Complete Time: 08:22 [facility] 03/02 08:01 Order name: Urine Dipstick-Ancillary (obtain specimen); Complete Time: 08:32 [facility] 03/02 10:52 Order name: EKG; Complete Time: 10:52 [facility] 03/02 10:52 Order name: EKG - Nurse/Tech; Complete Time: 11:13 [facility] Administered Medications: 09:05 Drug: NS 0.9% 1000 ml Route: IV; Rate: 1 bolus; Site: right forearm; sg 10:30 Follow up: Response: No adverse reaction; IV Status: Completed infusion ph 09:09 Drug: Pepcid 20 mg Route: IVP; Site: right forearm; sg 09:45 Follow up: Response: No adverse reaction sg 11:10 Drug: Cipro 500 mg Route: PO; sg 18:31 Follow up: Response: No adverse reaction ph 11:21 Not Given (Physician Discretion): Cipro 400 mg 200 ml IVPB once over 60 mins iw Disposition: 03/02/19 11:09 Discharged to Home. Impression: Abdominal tenderness, Elevated white blood cell count, Diarrhea, unspecified, Urinary tract infection, site not specified. - Condition is Stable. - Discharge Instructions: Abdominal Pain, Adult, Food Choices to Help Relieve Diarrhea, Adult, Type 2 Diabetes Mellitus, Diagnosis, Adult, Diarrhea, Adult, Type 2 Diabetes Mellitus, Diagnosis, Adult, [id number], Type 1 or Type 2 Diabetes Mellitus During , Self Care, [id number]. - Prescriptions for Pepcid 20 mg Oral Tablet - take 1 tablet by ORAL route every 12 hours for 10 days; 20 tablet. Zofran 4 mg Oral Tablet - take 1 tablet by ORAL route every 12 hours As needed; 20 tablet. Cipro 500 mg Oral Tablet - take 1 tablet by ORAL route every 12 hours for 5 days; 10 tablet. - Work release form, Medication Reconciliation Form, Thank You Letter, Antibiotic Education, Prescription Opioid Use form. - Follow up: Private Physician; When: 2 - 3 days; Reason: Recheck today's complaints, Continuance of care, Re-evaluation by your physician. - Problem is new. - Symptoms have improved. Signatures: Dispatcher [employer] EDMS Ld Pettit RN RN sg Anderson, Corey, MD MD cha Williams, Irene, RN RN iw Cassie Sharma RN RN ph Corrections: (The following items were deleted from the chart) 11:34 11:09 03/02/2019 11:09 Discharged to Home. Impression: Abdominal tenderness; Elevated sg white blood cell count; Diarrhea, unspecified; Urinary tract infection, site not specified. Condition is Stable. Discharge Instructions: Abdominal Pain, Adult, Food Choices to Help Relieve Diarrhea, Adult, Type 2 Diabetes Mellitus, Diagnosis, Adult, Diarrhea, Adult, Type 2 Diabetes Mellitus, Diagnosis, Adult, Cnty-ru-[id number], Type 1 or Type 2 Diabetes Mellitus During , Self Care, [id number]. Prescriptions for Pepcid 20 mg Oral Tablet - take 1 tablet by ORAL route every 12 hours for 10 days; 20 tablet, Zofran 4 mg Oral Tablet - take 1 tablet by ORAL route every 12 hours As needed; 20 tablet, Cipro 500 mg Oral Tablet - take 1 tablet by ORAL route every 12 hours for 5 days; 10 tablet. and Forms are Medication Reconciliation Form, Thank You Letter, Antibiotic Education, Prescription Opioid Use. Follow up: Private Physician; When: 2 - 3 days; Reason: Recheck today's complaints, Continuance of care, Re-evaluation by your physician. Problem is new. Symptoms have improved. manuel
--- NOTE | 2019-03-02 11:10 | ER ---
Nurse's Notes [facility] Name: Jay Pool Age: 63 yrs Sex: Male : 1955 Arrival Date: 03/02/2019 Time: 07:54 Bed 6 Private MD: Diagnosis: Abdominal tenderness;Elevated white blood cell count;Diarrhea, unspecified;Urinary tract infection, site not specified Presentation: 03/02 07:55 Presenting complaint: EMS states: Pt was at work walking through the plant and ph experienced substernal chest pressure that radiated to L chest, also c/o nausea, denies vomiting or SOB, hx of cardiac problems, BP elevated at 164/120, pt reports that pain improved SEX THERAPIST. Transition of care: patient was not received from another setting of care. Onset of symptoms was March 02, 2019. Risk Assessment: Do you want to hurt yourself or someone else? Patient reports no desire to harm self or others. Initial Sepsis Screen: Does the patient meet any 2 criteria? No. Patient's initial sepsis screen is negative. Does the patient have a suspected source of infection? No. Patient's initial sepsis screen is negative. Care prior to arrival: None. 07:55 Method Of Arrival: EMS: [facility] ph 07:55 Acuity: CATHIE 3 ph Historical: - Allergies: 08:05 PRAMOD INHIBITORS; ph - Home Meds: 08:05 Levemir 100 unit/mL subcutaneous soln [Active]; metformin 1,000 mg Oral tab 1 tab 2 ph times per day [Active]; glipizide 5 mg Oral tab 1 tab 2 times per day [Active]; atorvastatin 40 mg oral tab 1 tab once daily [Active]; lansoprazole oral 25 mg oral once daily [Active]; isosorbide mononitrate 30 mg Oral Tb24 1 tab once daily [Active]; Christina Chewable Aspirin 81 mg oral chew 1 tab once daily [Active]; metoprolol tartrate 50 mg Oral tab once daily [Active]; - PMHx: 08:05 Diabetes - NIDDM; PVC; ph - Immunization history:: Adult Immunizations unknown. - Social history:: Smoking status: Patient/guardian denies using tobacco. - Ebola Screening: : No symptoms or risks identified at this time. Screenin:05 Abuse screen: Denies threats or abuse. Denies injuries from another. Nutritional ph screening: No deficits noted. Tuberculosis screening: No symptoms or risk factors identified. Fall Risk None identified. Assessment: 08:06 General: Appears in no apparent distress. comfortable, well groomed, Behavior is calm, ph cooperative, appropriate for age. Pain: Denies pain. Neuro: Level of Consciousness is awake, alert, obeys commands, Oriented to person, place, time, situation. Cardiovascular: Reports chest pain, nausea, SEX THERAPIST Capillary refill < 3 seconds in bilateral fingers Patient's skin is warm and dry. Rhythm is sinus rhythm Chest pain quality is pressure, is located in chest wall substernal area radiates to left chest began suddenly, episodes last > 5 minutes. Respiratory: Airway is patent Respiratory effort is even, unlabored, Respiratory pattern is regular, symmetrical. GI: No signs and/or symptoms were reported involving the gastrointestinal system. Patient currently denies abdominal pain, diarrhea, vomiting. Derm: Skin is intact, is healthy with good turgor, Skin is pink, warm \T\ dry. 09:00 Reassessment: Patient appears in no apparent distress at this time. Patient and/or ph family updated on plan of care and expected duration. Pain level reassessed. Patient is alert, oriented x 3, equal unlabored respirations, skin warm/dry/pink. Patient denies pain at this time. 10:00 Reassessment: Patient appears in no apparent distress at this time. Patient and/or ph family updated on plan of care and expected duration. Pain level reassessed. Patient is alert, oriented x 3, equal unlabored respirations, skin warm/dry/pink. 11:00 Reassessment: Patient appears in no apparent distress at this time. Patient and/or ph family updated on plan of care and expected duration. Pain level reassessed. Patient is alert, oriented x 3, equal unlabored respirations, skin warm/dry/pink. Pt resting quietly, awaiting repeat cardiac enzymes before d/c home Patient denies pain at this time. Patient states feeling better. Vital Signs: 07:59 BP 185 / 100; Pulse 83; Resp 18; Temp 97.9; Pulse Ox 97% on R/A; Weight 86.18 kg; ph Height 5 ft. 10 in. (177.80 cm); 08:50 BP 141 / 90; Pulse 74; Pulse Ox 98% on R/A; sg 10:00 BP 141 / 81; Pulse 66; Resp 16; Pulse Ox 97% on R/A; ph 11:00 BP 142 / 84; Pulse 68; Resp 18; Temp 98.0; Pulse Ox 99% on R/A; Pain 0/10; ph 07:59 Body Mass Index 27.26 (86.18 kg, 177.80 cm) ph ED Course: 07:54 Patient arrived in ED. ph 07:59 Triage completed. ph 08:01 Raman Gore MD is Attending Physician. manuel 08:05 Arm band placed on. ph 08:08 Patient has correct armband on for positive identification. Bed in low position. Call ph light in reach. Side rails up X 1. secured entrance monitor on. Pulse ox on. NIBP on. 08:09 Patient maintains SpO2 saturation greater than 95% on room air. ph 08:22 Initial lab(s) drawn, by mi, sent to lab. Inserted saline lock: 22 gauge in right em1 forearm, using aseptic technique. Blood collected. 08:49 XRAY Chest (1 view) In Process Unspecified. EDMS 09:48 Cassie Sharma, RN is Primary Nurse. ph 09:[address] via wheelchair. sj 10:12 CT Abd/Pelvis - W/Contrast In Process Unspecified. EDMS 10:12 Patient moved back from CT. sg 11:19 EKG done, by facilities maintenance technician. reviewed by Raman Gore MD. 3 11:34 No provider procedures requiring assistance completed. IV discontinued, intact, ph bleeding controlled, No redness/swelling at site. Pressure dressing applied. Administered Medications: 09:05 Drug: NS 0.9% 1000 ml Route: IV; Rate: 1 bolus; Site: right forearm; sg 10:30 Follow up: Response: No adverse reaction; IV Status: Completed infusion ph 09:09 Drug: Pepcid 20 mg Route: IVP; Site: right forearm; sg 09:45 Follow up: Response: No adverse reaction sg 11:10 Drug: Cipro 500 mg Route: PO; sg 18:31 Follow up: Response: No adverse reaction ph 11:21 Not Given (Physician Discretion): Cipro 400 mg 200 ml IVPB once over 60 mins iw Outcome: 11:09 Discharge ordered by . manuel 11:34 Patient left the ED. sg 11:34 Discharged to home ambulatory. ph 11:34 Condition: good 11:34 Discharge instructions given to patient, Instructed on discharge instructions, follow up and referral plans. medication usage, Demonstrated understanding of instructions, follow-up care, medications, Prescriptions given X 3. Addendum: 03/04/2019 07:30 Addendum: Culture Results: Positive urine culture. No further action required. Bacteria a a5 sensitive to prescribed antibiotic. Signatures: Dispatcher [employer] EDLd Hudson, RN RN Raman Gonzalez MD MD cha Jones, Mich Rodriguez em1 Lyly Lopez RN RN aa5 Cassie Sharma RN RN Cody, Lianna 3 Lissa Nam RN iw
[2019-03-02] MEDS ORDERED: CIPROFLOXACIN HCL 500 MG TAB ONE (11:35)
--- NOTE | 2019-03-02 17:12 | EKG ---
Test Date: 2019-03-02 Test Time: 11:17:17 Hand Laminator: YADIRA-Lora MEASUREMENT RESULTS: Intervals: Rate: 56 IN: 188 QRSD: 94 QT: 420 QTc: 405 [place]: P: 80 IN: 188 QRS: -11 T: 75 INTERPRETIVE STATEMENTS: Sinus bradycardia Otherwise normal ECG Compared to ECG 03/02/2019 07:54:29 Sinus rhythm no longer present Sinus arrhythmia no longer present Electronically Signed On 03-02-19 17:11:36 CDT by Christopher Cuevas
== END 2019-03-02 11:34 | disposition home or self-care (01) ==
LOC: ER 07:44
DX: R10.9 Unspecified abdominal pain (principal); D72.829 Elevated white blood cell count, unspecified; R19.7 Diarrhea, unspecified; N39.0 Urinary tract infection, site not specified; E11.9 Type 2 diabetes mellitus without complications; Z79.82 Long term (current) use of aspirin
CPT/HCPCS: 36415; 71045; 74177; 80048; 80076; 81003; 83690; 83735; 83880; 84484; 85025; 85610; 87077; 87086; 87088; 87186; 93005; 96361; 96374; 99285; J7030; Q9967